=== PATIENT | male | born 1970 | race Caucasian/White ===

== ENCOUNTER 2017-07-08 08:28 | Inpatient (IN) | payer MEDICAID, OTHER ==
[~2017-07-08] VITALS: Ht 175.3 cm; Wt 225.8 kg
[~2017-07-08 08:28] MED LIST: CARV12 PO; LURA40 PO; PARO20TA24 PO
[2017-07-08] MEDS ORDERED: FURO40 PO (08:35)
[2017-07-08] MEDS ORDERED: BUPR300T54 PO (08:35)
[2017-07-08] MEDS ORDERED: LOSA50TA37 PO (08:35)
[2017-07-08 09:25] LABS: AMPHET/METH SCREEN,URINE NEGATIVE (NEGATIVE); BARBITURATE SCREEN, URINE NEGATIVE (NEGATIVE); BENZODIAZEPINES SCREEN,URINE POSITIVE (NEGATIVE); CANNABINOID SCREEN,URINE NEGATIVE (NEGATIVE); COCAINE SCREEN,URINE NEGATIVE (NEGATIVE); METHADONE SCREEN, URINE NEGATIVE (NEGATIVE); OPIATE SCREEN,URINE NEGATIVE (NEGATIVE)
[2017-07-08 09:28] LABS: PHENCYCLIDINE SCREEN,URINE NEGATIVE (NEGATIVE)
[2017-07-08 09:52] LABS: EOSINOPHILS # (AUTO) 0.08 K/uL (0.00-0.70)
[2017-07-08 09:57] LABS: BASOPHILS # (AUTO) 0.05 K/uL (0.00-0.20); BASOPHILS % (AUTO) 0.7 % (0.0-2.0); EOSINOPHILS % (AUTO) 1.12 % (1.0-6.0); HEMOGLOBIN 14.3 g/dL (13.5-17.5); LYMPHOCYTES # (AUTO) 1.6 K/uL (1.0-4.8); LYMPHOCYTES % (AUTO) 21.4 % (22.0-44.0); MEAN CORPUSCULAR HEMOGLOBIN 26.8 pg (26.0-34.0); MEAN CORPUSCULAR HGB CONC 32.5 G/dL (31.0-37.0); MEAN CORPUSCULAR VOLUME 83 fL (80-100); MONOCYTES # (AUTO) 0.8 K/uL (0.1-1.0); MONOCYTES % (AUTO) 10.6 % (2.0-9.0); NEUTROPHILS % (AUTO) 66.2 % (40.0-70.0); PLATELET COUNT (AUTO) 206 K/uL (150-450); RED BLOOD CELL COUNT(AUTO) 5.33 MIL/uL (4.50-5.90); RED CELL DISTRIBUTION WIDTH 15.6 % (11.5-14.5)
[2017-07-08 10:08] LABS: ANION GAP 12 mmol/L (8-16); CALCIUM, TOTAL 9.8 mg/dL (8.8-10.5); CARBON DIOXIDE 29 mmol/L (22-29); CHLORIDE 103 mmol/L (98-107); CREATININE 1.24 mg/dL (0.60-1.30); GLOMERULAR FILTR. RATE CALC > 60 mL/min (>60); GLUCOSE,RANDOM 93 mg/dL (70-110); POTASSIUM 3.6 mmol/L (3.5-5.1); SODIUM SERUM 144 mmol/L (136-145); UREA NITROGEN, BLOOD 30 mg/dL (7-18)
[2017-07-08 10:14] LABS: ALANINE AMINOTRANSFERASE 70 U/L (12-78); ALBUMIN 4.2 g/dL (3.4-5.0); ALKALINE PHOSPHATASE 49 U/L (46-116); ASPARTATE AMINOTRANSFERASE 53 U/L (15-37); BILIRUBIN,TOTAL 0.7 mg/dL (0.1-1.0); TOTAL PROTEIN, SERUM 7.7 g/dL (6.4-8.2)
[2017-07-08] MEDS ORDERED: LORazepam 2 MG/ML VIAL IM ONE ×3 (13:00→20:30)
[2017-07-08] MEDS ORDERED: DiphenhydrAMINE HCL 50 MG/ML VIAL IM ONE ×3 (13:00→20:30)
[2017-07-08] MEDS ORDERED: HALOPERIDOL LACTATE 5 MG/ML VIAL IM ONE ×3 (13:00→20:30)
[2017-07-08] MEDS ORDERED: ZOLPIDEM TARTRATE 10 MG TABLET PO PRN (13:45)
[2017-07-08] MEDS ORDERED: HALOPERIDOL 5 MG TABLET PO PRN (13:45)
[2017-07-08] MEDS: LORazepam 2 MG TABLET PO PRN (20:17)
[2017-07-09 00:29] LABS: APPEARANCE,URINE CLEAR (CLEAR); BILIRUBIN,URINE NEGATIVE (NEGATIVE); GLUCOSE, URINE (UA) NEGATIVE (NEGATIVE); KETONES,URINE TRACE mg/dL (NEGATIVE); LEUKOCYTE ESTERASE ,URINE NEGATIVE (NEGATIVE); NITRATE,URINE NEGATIVE (NEGATIVE); OCCULT BLOOD,URINE NEGATIVE (NEGATIVE); PH,URINE 6.5 (5.0-8.0); PROTEIN,URINE NEGATIVE (NEGATIVE); UROBILINOGEN,URINE 0.2 mg/dL (<=1.0)
[2017-07-09 08:28] LABS: FREE T4 (FREE THYROXINE) 1.06 ng/dL (0.76-1.46); THYROID STIMULATING HORMONE 1.41 uIU/mL (0.36-3.74)
[2017-07-09 19:47] VITALS: BP 133/79
[2017-07-09 20:39] VITALS: BP 133/79
[2017-07-10] MEDS ORDERED: ONDANSETRON HCL 4 MG TABLET PO PRN (07:30)
[2017-07-10] MEDS ORDERED: ALBUTEROL SULFATE HFA 90 MCG/PUFF 8 GM INHALER IH PRN (07:30)
[2017-07-10] MEDS ORDERED: CloNIDine HCL 0.1 MG TABLET PO PRN (07:30)
[2017-07-10] MEDS ORDERED: BACITRACIN 28.4 GM OINTMENT TP PRN (07:30)
[2017-07-10] MEDS ORDERED: MAG HYDROX/AL HYDROX/SIMETH ES 30 ML SUSPENSION UDCUP PO PRN (07:30)
[2017-07-10] MEDS ORDERED: IBUPROFEN 600 MG TABLET PO PRN (07:30)
[2017-07-10] MEDS ORDERED: MAGNESIUM HYDROXIDE SUSPENSION 30 ML UDCUP PO PRN (07:30)
[2017-07-10] MEDS ORDERED: PETROLATUM,WHITE 71 GM JELLY TP PRN (07:30)
[2017-07-10] MEDS ORDERED: ACETAMINOPHEN 325 MG TABLET PO PRN (07:30)
[2017-07-10] MEDS ORDERED: LOPERAMIDE HCL 2 MG CAPSULE PO PRN (07:30)
[2017-07-10] MEDS ORDERED: BENZOCAINE/MENTHOL LOZENGE MM PRN (07:30)
[2017-07-10 08:03] VITALS: BP 123/76
[2017-07-10] MEDS ORDERED: FUROSEMIDE 40 MG TABLET PO SCH (09:00)
[2017-07-10] MEDS ORDERED: ALBUTEROL SULFATE/IPRATROPIUM 100-20 MCG/SPRAY 4 GM INHALER IH SCH (09:00)
[2017-07-10] MEDS ORDERED: ZARO5 PO (09:22)
[2017-07-10] MEDS ORDERED: NAPR-58 PO (09:29)
[2017-07-10] MEDS ORDERED: CYCL10 PO (09:29)
[2017-07-10] MEDS ORDERED: ALBU8.5H8 IH (09:29)
[2017-07-10] MEDS ORDERED: METH4TAB3 PO (09:29)
[2017-07-10] MEDS ORDERED: DIAZ5 PO (09:29)
[2017-07-10] MEDS ORDERED: BUDE180H IH (09:29)
[2017-07-10] MEDS ORDERED: ASPI81 PO (09:29)
[2017-07-10] MEDS ORDERED: FURO80 PO (09:29)
[2017-07-10] MEDS ORDERED: [UNRECOGNIZED DRUG - OTHER] PO (09:36)
[2017-07-10] MEDS: LOSARTAN POTASSIUM 50 MG TABLET PO SCH (11:06)
[2017-07-10] MEDS: TiZANidine HCL 4 MG TABLET PO SCH ×2 (11:06→17:48)
[2017-07-10] MEDS: ASPIRIN 81 MG EC TABLET PO SCH (11:06)
[2017-07-10] MEDS: DOCUSATE SODIUM 100 MG CAPSULE PO SCH (11:07)
[2017-07-10] MEDS: OMEPRAZOLE 20 MG CAPSULE PO SCH (11:07)
[2017-07-10] MEDS: METOLAZONE 5 MG TABLET PO SCH (11:07)
[2017-07-10] MEDS: CARVEDILOL 12.5 MG TABLET PO SCH ×2 (11:07→17:47)
[2017-07-10] MEDS: NICOTINE POLACRILEX 2 MG LOZENGE PO PRN ×2 (11:23→13:43)
[2017-07-10] MEDS: LORazepam 2 MG TABLET PO PRN (13:45)
[2017-07-10] MEDS: FUROSEMIDE 80 MG TABLET PO SCH (17:47)
[2017-07-10] MEDS: LamoTRIgine 100 MG TABLET PO SCH (17:48)
[2017-07-10] MEDS: BUDESONIDE 180 MCG/INH INHALER [120] IH SCH (17:49)
[2017-07-10 19:15] VITALS: BP 105/68
[2017-07-11 08:04] VITALS: BP 158/99
[2017-07-11] MEDS: TiZANidine HCL 4 MG TABLET PO SCH (08:04)
[2017-07-11] MEDS: FUROSEMIDE 80 MG TABLET PO SCH (08:04)
[2017-07-11] MEDS: LamoTRIgine 100 MG TABLET PO SCH (08:04)
[2017-07-11] MEDS: OMEPRAZOLE 20 MG CAPSULE PO SCH (08:04)
[2017-07-11] MEDS: METOLAZONE 5 MG TABLET PO SCH (08:04)
[2017-07-11] MEDS: CARVEDILOL 12.5 MG TABLET PO SCH (08:04)
[2017-07-11] MEDS: BUDESONIDE 180 MCG/INH INHALER [120] IH SCH (08:04)
[2017-07-11] MEDS: LOSARTAN POTASSIUM 50 MG TABLET PO SCH (08:04)
[2017-07-11] MEDS: DOCUSATE SODIUM 100 MG CAPSULE PO SCH (08:04)
[2017-07-11] MEDS: ASPIRIN 81 MG EC TABLET PO SCH (08:05)
[2017-07-11] MEDS: NICOTINE POLACRILEX 2 MG LOZENGE PO PRN ×2 (08:11→10:11)
[2017-07-11] MEDS ORDERED: TIZA4TAB4 PO (10:58)
[2017-07-11] MEDS ORDERED: OMEP20 PO (10:58)
[2017-07-11] MEDS ORDERED: LAMO100 PO (11:00)
[2017-07-11] MEDS ORDERED: DSS100 PO (11:07)
== END 2017-07-11 12:05 | disposition home or self-care (01) | DRG 750 ==
LOC: EMS 08:35 → 3EC 07-09 15:47
PROVIDERS: ADMIT Psychiatry & Neurology Child & Adolescent Psychiatry; ATTEND Psychiatry & Neurology Child & Adolescent Psychiatry
DX: F25.9 Schizoaffective disorder, unspecified (principal); I11.0 Hypertensive heart disease with heart failure; I50.20 Unspecified systolic (congestive) heart failure; E66.01 Morbid (severe) obesity due to excess calories; F22 Delusional disorders; F43.10 Post-traumatic stress disorder, unspecified; G47.00 Insomnia, unspecified; G47.33 Obstructive sleep apnea (adult) (pediatric); J44.9 Chronic obstructive pulmonary disease, unspecified; K21.9 Gastro-esophageal reflux disease without esophagitis; M54.30 Sciatica, unspecified side; Z81.8 Family history of other mental and behavioral disorders; Z87.891 Personal history of nicotine dependence; Z68.45 Body mass index [BMI] 70 or greater, adult
CPT/HCPCS: 84439; 84443; 94660; 96372; 99285; G0480; J1200; J1630; J2060; J3535

== ENCOUNTER 2017-11-24 13:50 | Inpatient (IN) | payer MEDICAID, OTHER ==
[~2017-11-24] VITALS: Ht 167.6 cm; Wt 214.5 kg
[~2017-11-24 13:50] MED LIST changes: +ALBU8.5H8 IH; +ASPI81 PO; +BUDE180H IH; +DSS100 PO; +FURO80 PO; +LAMO100 PO; +LOSA50TA37 PO; -LURA40 PO; +OMEP20 PO; -PARO20TA24 PO; +TIZA4TAB4 PO; +ZARO5 PO
[2017-11-24] MEDS ORDERED: LORazepam 2 MG/ML VIAL IM ONE (15:30)
[2017-11-24] MEDS ORDERED: HALOPERIDOL LACTATE 5 MG/ML VIAL IM ONE (15:30)
[2017-11-24] MEDS ORDERED: DiphenhydrAMINE HCL 50 MG/ML VIAL IM ONE (15:30)
[2017-11-24 15:52] LABS: APPEARANCE,URINE CLEAR (CLEAR); BILIRUBIN,URINE NEGATIVE (NEGATIVE); GLUCOSE, URINE (UA) NEGATIVE (NEGATIVE); KETONES,URINE TRACE mg/dL (NEGATIVE); LEUKOCYTE ESTERASE ,URINE NEGATIVE (NEGATIVE); NITRATE,URINE NEGATIVE (NEGATIVE); OCCULT BLOOD,URINE NEGATIVE (NEGATIVE); PROTEIN,URINE NEGATIVE (NEGATIVE)
[2017-11-24 15:57] LABS: AMPHET/METH SCREEN,URINE NEGATIVE (NEGATIVE); BARBITURATE SCREEN, URINE NEGATIVE (NEGATIVE); BENZODIAZEPINES SCREEN,URINE NEGATIVE (NEGATIVE); CANNABINOID SCREEN,URINE NEGATIVE (NEGATIVE); COCAINE SCREEN,URINE NEGATIVE (NEGATIVE); METHADONE SCREEN, URINE NEGATIVE (NEGATIVE); OPIATE SCREEN,URINE NEGATIVE (NEGATIVE); PHENCYCLIDINE SCREEN,URINE NEGATIVE (NEGATIVE)
[2017-11-24] MEDS ORDERED: ACETAMINOPHEN 325 MG TABLET PO ONE (16:15)
[2017-11-24] MEDS ORDERED: CEPHALEXIN MONOHYDRATE 500 MG CAPSULE PO ONE (16:15)
[2017-11-24] MEDS ORDERED: FUROSEMIDE 20 MG TABLET PO ONE (16:15)
[2017-11-24 18:22] LABS: BASOPHILS % (AUTO) 1.1 % (0.0-2.0); EOSINOPHILS % (AUTO) 3.1 % (1.0-6.0); HEMATOCRIT 35.6 % (41-53); HEMOGLOBIN 11.6 g/dL (13.5-17.5); LYMPHOCYTES # (AUTO) 1.5 K/uL (1.0-4.8); LYMPHOCYTES % (AUTO) 22.2 % (22.0-44.0); MEAN CORPUSCULAR HEMOGLOBIN 26.4 pg (26.0-34.0); MEAN CORPUSCULAR HGB CONC 32.5 G/dL (31.0-37.0); MEAN CORPUSCULAR VOLUME 81 fL (80-100); MONOCYTES # (AUTO) 1.1 K/uL (0.1-1.0); MONOCYTES % (AUTO) 15.1 % (2.0-9.0); NEUTROPHILS # (AUTO) 4.1 K/uL (1.8-7.7); NEUTROPHILS % (AUTO) 58.5 % (40.0-70.0); PLATELET COUNT (AUTO) 220 K/uL (150-450); RED BLOOD CELL COUNT(AUTO) 4.39 MIL/uL (4.50-5.90); RED CELL DISTRIBUTION WIDTH 16.9 % (11.5-14.5)
[2017-11-24 18:46] LABS: ANION GAP 9 mmol/L (8-16); CALCIUM, TOTAL 8.6 mg/dL (8.8-10.5); CARBON DIOXIDE 29 mmol/L (22-29); CHLORIDE 100 mmol/L (98-107); CREATININE 1.14 mg/dL (0.60-1.30); GLOMERULAR FILTR. RATE CALC > 60 mL/min (>60); GLUCOSE,RANDOM 90 mg/dL (70-110); POTASSIUM 3.5 mmol/L (3.5-5.1); SODIUM SERUM 138 mmol/L (136-145); UREA NITROGEN, BLOOD 11 mg/dL (7-18)
[2017-11-24 18:53] LABS: ALANINE AMINOTRANSFERASE 72 U/L (12-78); ALBUMIN 3.6 g/dL (3.4-5.0); ALKALINE PHOSPHATASE 39 U/L (46-116); ASPARTATE AMINOTRANSFERASE 74 U/L (15-37); BILIRUBIN,TOTAL 0.6 mg/dL (0.1-1.0); C-REACTIVE PROTEIN QUANT 1.38 mg/dL (0.00-0.30); TOTAL PROTEIN, SERUM 6.7 g/dL (6.4-8.2)
[2017-11-24 19:06] LABS: B-TYPE NATRIURETIC PEPTIDE 48 pg/mL (0-100)
[2017-11-24] MEDS ORDERED: HALOPERIDOL 5 MG TABLET PO PRN (19:15)
[2017-11-24 19:45] LABS: ERYTHROCYTE SEDIMENTATION RATE 8 MM/HR (0-15)
[2017-11-24] MEDS: LamoTRIgine 100 MG TABLET PO SCH (20:25)
[2017-11-24 21:22] VITALS: BP 121/86
[2017-11-25] MEDS: LORazepam 2 MG TABLET PO PRN (02:11)
[2017-11-25] MEDS: BUDESONIDE 180 MCG/INH INHALER [120] IH SCH ×2 (10:07→16:29)
[2017-11-25] MEDS: CARVEDILOL 12.5 MG TABLET PO SCH ×2 (10:07→16:29)
[2017-11-25] MEDS: ASPIRIN 81 MG CHEWABLE TABLET PO SCH (10:07)
[2017-11-25] MEDS: LOSARTAN POTASSIUM 50 MG TABLET PO SCH (10:09)
[2017-11-25] MEDS: METOLAZONE 5 MG TABLET PO SCH (10:15)
[2017-11-25] MEDS: TiZANidine HCL 4 MG TABLET PO SCH ×2 (10:15→16:30)
[2017-11-25] MEDS: LamoTRIgine 100 MG TABLET PO SCH (10:15)
[2017-11-25] MEDS: FUROSEMIDE 80 MG TABLET PO SCH (10:15)
[2017-11-25] MEDS: OMEPRAZOLE 20 MG CAPSULE PO SCH (10:15)
[2017-11-25] MEDS: DOCUSATE SODIUM 100 MG CAPSULE PO SCH (10:22)
[2017-11-25 10:26] VITALS: BP 128/67
[2017-11-25] MEDS ORDERED: HALOPERIDOL LACTATE 5 MG/ML VIAL IM ONE (20:00)
[2017-11-25] MEDS ORDERED: LORazepam 2 MG/ML VIAL IM ONE (20:00)
[2017-11-25] MEDS ORDERED: DiphenhydrAMINE HCL 50 MG/ML VIAL IM ONE (20:00)
[2017-11-26] MEDS: BUDESONIDE 180 MCG/INH INHALER [120] IH SCH ×2 (07:40→17:36)
[2017-11-26] MEDS: METOLAZONE 5 MG TABLET PO SCH (07:41)
[2017-11-26] MEDS: LamoTRIgine 100 MG TABLET PO SCH (07:41)
[2017-11-26] MEDS: FUROSEMIDE 80 MG TABLET PO SCH (07:41)
[2017-11-26] MEDS: CARVEDILOL 12.5 MG TABLET PO SCH ×2 (07:41→17:33)
[2017-11-26] MEDS: TiZANidine HCL 4 MG TABLET PO SCH ×2 (07:41→17:33)
[2017-11-26] MEDS: OMEPRAZOLE 20 MG CAPSULE PO SCH (07:41)
[2017-11-26] MEDS: LOSARTAN POTASSIUM 50 MG TABLET PO SCH (07:41)
[2017-11-26] MEDS: DOCUSATE SODIUM 100 MG CAPSULE PO SCH (07:42)
[2017-11-26] MEDS: ASPIRIN 81 MG CHEWABLE TABLET PO SCH (07:42)
[2017-11-26 08:00] VITALS: BP 139/93
[2017-11-26] MEDS: ALBUTEROL SULFATE 2.5 MG/0.5 ML NEB SOLUTION NEB PRN (08:38)
[2017-11-26] MEDS: IPRATROPIUM BROMIDE 0.5 MG/2.5 ML NEB SOLUTION NEB PRN (08:39)
[2017-11-26] MEDS ORDERED: LamoTRIgine 100 MG TABLET PO SCH (09:00)
[2017-11-26] MEDS ORDERED: PETROLATUM,WHITE 71 GM JELLY TP PRN (20:45)
[2017-11-26] MEDS ORDERED: CloNIDine HCL 0.1 MG TABLET PO PRN (20:45)
[2017-11-26] MEDS ORDERED: MAG HYDROX/AL HYDROX/SIMETH ES 30 ML SUSPENSION UDCUP PO PRN (20:45)
[2017-11-26] MEDS ORDERED: LOPERAMIDE HCL 2 MG CAPSULE PO PRN (20:45)
[2017-11-26] MEDS ORDERED: ONDANSETRON HCL 4 MG TABLET PO PRN (20:45)
[2017-11-26] MEDS ORDERED: MAGNESIUM HYDROXIDE SUSPENSION 30 ML UDCUP PO PRN (20:45)
[2017-11-26] MEDS ORDERED: IBUPROFEN 600 MG TABLET PO PRN (20:45)
[2017-11-26] MEDS ORDERED: BACITRACIN 28.4 GM OINTMENT TP PRN (20:45)
[2017-11-26] MEDS ORDERED: BENZOCAINE/MENTHOL LOZENGE MM PRN (20:45)
[2017-11-26 21:23] VITALS: BP 136/78
[2017-11-27] MEDS: ZOLPIDEM TARTRATE 10 MG TABLET PO PRN (02:34)
[2017-11-27] MEDS: LORazepam 2 MG TABLET PO PRN ×2 (02:34→17:30)
[2017-11-27 06:34] LABS: % IRON SATURATION 6.6 % (30-44)
[2017-11-27 06:43] LABS: CALCIUM, TOTAL 8.9 mg/dL (8.8-10.5); CHOL/HDL RATIO 2.9 (4.2-7.3); CREATININE 1.79 mg/dL (0.60-1.30); PHOSPHORUS 4.1 mg/dL (2.5-4.9); POTASSIUM 3.4 mmol/L (3.5-5.1); THYROID STIMULATING HORMONE 2.33 uIU/mL (0.36-3.74)
[2017-11-27 06:51] LABS: BASOPHILS % (AUTO) 0.8 % (0.0-2.0); HEMATOCRIT 38.9 % (41-53); HEMOGLOBIN 12.9 g/dL (13.5-17.5); LYMPHOCYTES # (AUTO) 2.5 K/uL (1.0-4.8); LYMPHOCYTES % (AUTO) 24.6 % (22.0-44.0); MEAN CORPUSCULAR HEMOGLOBIN 26.9 pg (26.0-34.0); MEAN CORPUSCULAR HGB CONC 33.1 G/dL (31.0-37.0); MEAN CORPUSCULAR VOLUME 81 fL (80-100); MONOCYTES # (AUTO) 1.2 K/uL (0.1-1.0); MONOCYTES % (AUTO) 11.6 % (2.0-9.0); NEUTROPHILS # (AUTO) 6.1 K/uL (1.8-7.7); PLATELET COUNT (AUTO) 238 K/uL (150-450); RED BLOOD CELL COUNT(AUTO) 4.79 MIL/uL (4.50-5.90); RED CELL DISTRIBUTION WIDTH 16.8 % (11.5-14.5)
[2017-11-27] MEDS: BUDESONIDE 180 MCG/INH INHALER [120] IH SCH ×2 (08:17→17:30)
[2017-11-27] MEDS: ASPIRIN 81 MG CHEWABLE TABLET PO SCH (08:17)
[2017-11-27] MEDS: DOCUSATE SODIUM 100 MG CAPSULE PO SCH (08:17)
[2017-11-27] MEDS: OMEPRAZOLE 20 MG CAPSULE PO SCH (08:17)
[2017-11-27] MEDS: FUROSEMIDE 80 MG TABLET PO SCH (08:18)
[2017-11-27] MEDS: TiZANidine HCL 4 MG TABLET PO SCH ×2 (08:18→17:30)
[2017-11-27] MEDS: LamoTRIgine 100 MG TABLET PO SCH (08:18)
[2017-11-27] MEDS: CARVEDILOL 12.5 MG TABLET PO SCH ×2 (08:18→17:30)
[2017-11-27] MEDS: LOSARTAN POTASSIUM 50 MG TABLET PO SCH (08:18)
[2017-11-27] MEDS: METOLAZONE 5 MG TABLET PO SCH (08:19)
[2017-11-27 09:33] VITALS: BP 132/85
[2017-11-27] MEDS: ALBUTEROL SULFATE HFA 90 MCG/PUFF 8 GM INHALER IH PRN (09:49)
[2017-11-27] MEDS: IPRATROPIUM BROMIDE 0.5 MG/2.5 ML NEB SOLUTION NEB PRN ×2 (10:16→19:54)
[2017-11-27] MEDS: ALBUTEROL SULFATE 2.5 MG/0.5 ML NEB SOLUTION NEB PRN ×2 (10:16→19:54)
[2017-11-27 16:00] VITALS: BP 129/62
[2017-11-28] MEDS: ACETAMINOPHEN 325 MG TABLET PO PRN ×2 (00:13→06:00)
[2017-11-28 00:15] VITALS: BP 120/80
[2017-11-28] MEDS: LORazepam 2 MG TABLET PO PRN ×4 (00:24→22:46)
[2017-11-28] MEDS: ASPIRIN 81 MG CHEWABLE TABLET PO SCH (08:07)
[2017-11-28] MEDS: OMEPRAZOLE 20 MG CAPSULE PO SCH (08:07)
[2017-11-28] MEDS: ALBUTEROL SULFATE HFA 90 MCG/PUFF 8 GM INHALER IH PRN (08:07)
[2017-11-28] MEDS: DOCUSATE SODIUM 100 MG CAPSULE PO SCH (08:07)
[2017-11-28] MEDS: CHOLECALCIFEROL (VIT D3) 1,000 UNITS TABLET PO SCH (08:07)
[2017-11-28] MEDS: METOLAZONE 5 MG TABLET PO SCH (08:08)
[2017-11-28] MEDS: LOSARTAN POTASSIUM 50 MG TABLET PO SCH (08:08)
[2017-11-28] MEDS: TiZANidine HCL 4 MG TABLET PO SCH ×2 (08:08→16:33)
[2017-11-28] MEDS: FUROSEMIDE 80 MG TABLET PO SCH (08:08)
[2017-11-28] MEDS: BUDESONIDE 180 MCG/INH INHALER [120] IH SCH ×2 (08:08→16:33)
[2017-11-28] MEDS: LamoTRIgine 100 MG TABLET PO SCH (08:08)
[2017-11-28] MEDS: CARVEDILOL 12.5 MG TABLET PO SCH ×2 (08:08→16:33)
[2017-11-28 08:16] VITALS: BP 123/71
[2017-11-28 08:18] VITALS: BP 126/73
[2017-11-28] MEDS: ALBUTEROL SULFATE 2.5 MG/0.5 ML NEB SOLUTION NEB PRN ×2 (16:14→22:59)
[2017-11-28] MEDS: IPRATROPIUM BROMIDE 0.5 MG/2.5 ML NEB SOLUTION NEB PRN ×2 (16:14→22:59)
[2017-11-28 20:58] VITALS: BP 132/80
[2017-11-28] MEDS: ZOLPIDEM TARTRATE 10 MG TABLET PO PRN (22:45)
[2017-11-29] MEDS: ASPIRIN 81 MG CHEWABLE TABLET PO SCH (08:23)
[2017-11-29] MEDS: OMEPRAZOLE 20 MG CAPSULE PO SCH (08:23)
[2017-11-29] MEDS: CHOLECALCIFEROL (VIT D3) 1,000 UNITS TABLET PO SCH (08:23)
[2017-11-29] MEDS: DOCUSATE SODIUM 100 MG CAPSULE PO SCH (08:23)
[2017-11-29 08:24] VITALS: BP 154/98
[2017-11-29] MEDS: LOSARTAN POTASSIUM 50 MG TABLET PO SCH (08:24)
[2017-11-29] MEDS: TiZANidine HCL 4 MG TABLET PO SCH (08:24)
[2017-11-29] MEDS: CARVEDILOL 12.5 MG TABLET PO SCH (08:24)
[2017-11-29] MEDS: METOLAZONE 5 MG TABLET PO SCH (08:25)
[2017-11-29] MEDS: LamoTRIgine 100 MG TABLET PO SCH (08:25)
[2017-11-29] MEDS: BUDESONIDE 180 MCG/INH INHALER [120] IH SCH (08:26)
[2017-11-29] MEDS: ACETAMINOPHEN 325 MG TABLET PO PRN (08:27)
[2017-11-29 08:38] VITALS: BP 154/98
[2017-11-29 08:53] LABS: GLUCOMETER DEV NAME(LOC) 3EC; GLUCOSE,POINT OF CARE 115 MG/DL (70-110)
[2017-11-29 09:29] VITALS: BP 108/89
[2017-11-29] MEDS: FUROSEMIDE 80 MG TABLET PO SCH (09:40)
[2017-11-29] MEDS ORDERED: VITAD1000 PO (13:37)
== END 2017-11-29 15:15 | disposition home or self-care (01) | DRG 750 ==
LOC: EMS 13:52 → 3EC 20:29
PROVIDERS: ADMIT Psychiatry & Neurology Psychiatry; ATTEND Psychiatry & Neurology Psychiatry
PROC: 5A09357 Assistance with Respiratory Ventilation, Less than 24 Consecutive Hours, Continuous Positive Airway Pressure (ICD-10-PCS; principal; 2017-11-24)
PROC: 5A09357 Assistance with Respiratory Ventilation, Less than 24 Consecutive Hours, Continuous Positive Airway Pressure (ICD-10-PCS; 2017-11-27)
PROC: 5A09357 Assistance with Respiratory Ventilation, Less than 24 Consecutive Hours, Continuous Positive Airway Pressure (ICD-10-PCS; 2017-11-28)
DX: F25.0 Schizoaffective disorder, bipolar type (principal); L03.115 Cellulitis of right lower limb; I11.0 Hypertensive heart disease with heart failure; Z68.45 Body mass index [BMI] 70 or greater, adult; L03.116 Cellulitis of left lower limb; I50.20 Unspecified systolic (congestive) heart failure; R45.851 Suicidal ideations; E66.01 Morbid (severe) obesity due to excess calories; D64.9 Anemia, unspecified; M54.30 Sciatica, unspecified side; R79.82 Elevated C-reactive protein (CRP); E83.51 Hypocalcemia; G47.00 Insomnia, unspecified; F32.9 Major depressive disorder, single episode, unspecified; F43.10 Post-traumatic stress disorder, unspecified; G47.33 Obstructive sleep apnea (adult) (pediatric); J44.9 Chronic obstructive pulmonary disease, unspecified; K21.9 Gastro-esophageal reflux disease without esophagitis; F17.210 Nicotine dependence, cigarettes, uncomplicated; Z59.0 Homelessness; Z91.14 Patient's other noncompliance with medication regimen; Z79.899 Other long term (current) drug therapy; Z81.8 Family history of other mental and behavioral disorders
CPT/HCPCS: 82306; 83540; 83550; 83735; 84100; 84443; 85379; 85651; 86140; 87040; 93970; 94640; 94660; 99285; J1200; J1630; J2060; J3535

== ENCOUNTER 2017-12-18 15:22 | Inpatient (IN) | payer MEDICAID ==
[~2017-12-18] VITALS: Ht 177.8 cm; Wt 206.9 kg
[~2017-12-18 15:22] MED LIST changes: +VITAD1000 PO
[2017-12-18] MEDS ORDERED: HALOPERIDOL 5 MG TABLET PO PRN (18:00)
[2017-12-18] MEDS ORDERED: PNEUMOCOCCAL VACCINE POLYVALENT 0.5 ML VIAL [PPSV23] IM ONE (19:00)
[2017-12-18 19:58] LABS: GLUCOMETER DEV NAME(LOC) BV2N3; GLUCOSE,POINT OF CARE 95 MG/DL (70-110)
[2017-12-18 22:29] VITALS: BP 143/74
[2017-12-18] MEDS ORDERED: ALBUTEROL SULFATE HFA 90 MCG/PUFF 8 GM INHALER IH PRN (22:45)
[2017-12-19 01:51] VITALS: BP 109/61
[2017-12-19 06:51] LABS: BASOPHILS % (AUTO) 1.1 % (0.0-2.0); EOSINOPHILS % (AUTO) 5.2 % (1.0-6.0); HEMOGLOBIN 12.7 g/dL (13.5-17.5); LYMPHOCYTES # (AUTO) 2.4 K/uL (1.0-4.8); MEAN CORPUSCULAR HEMOGLOBIN 26.8 pg (26.0-34.0); MEAN CORPUSCULAR HGB CONC 33.3 G/dL (31.0-37.0); MEAN CORPUSCULAR VOLUME 81 fL (80-100); MONOCYTES # (AUTO) 0.8 K/uL (0.1-1.0); NEUTROPHILS # (AUTO) 3.3 K/uL (1.8-7.7); NEUTROPHILS % (AUTO) 47.7 % (40.0-70.0); PLATELET COUNT (AUTO) 273 K/uL (150-450); RED BLOOD CELL COUNT(AUTO) 4.73 MIL/uL (4.50-5.90); RED CELL DISTRIBUTION WIDTH 17.4 % (11.5-14.5)
[2017-12-19 07:09] LABS: HEMOGLOBIN A1C 6.4 % (4.5-6.2)
[2017-12-19 07:31] LABS: ALANINE AMINOTRANSFERASE 37 U/L (12-78); ALBUMIN 3.5 g/dL (3.4-5.0); ALKALINE PHOSPHATASE 59 U/L (46-116); ANION GAP 4 mmol/L (8-16); ASPARTATE AMINOTRANSFERASE 28 U/L (15-37); BILIRUBIN,TOTAL 0.4 mg/dL (0.1-1.0); CALCIUM, TOTAL 9.3 mg/dL (8.8-10.5); CARBON DIOXIDE 34 mmol/L (22-29); CHLORIDE 96 mmol/L (98-107); CHOL/HDL RATIO 3.5 (4.2-7.3); CHOLESTEROL 166 mg/dL (131-200); CREATININE 1.12 mg/dL (0.60-1.30); FREE T4 (FREE THYROXINE) 0.94 ng/dL (0.76-1.46); GLOMERULAR FILTR. RATE CALC > 60 mL/min (>60); GLUCOSE,RANDOM 107 mg/dL (70-110); HDL CHOLESTEROL 48 mg/dL (40-60); LDL CHOL (CALC.) 99 mg/dL (0-130); POTASSIUM 3.5 mmol/L (3.5-5.1); SODIUM SERUM 134 mmol/L (136-145); THYROID STIMULATING HORMONE 2.01 uIU/mL (0.36-3.74); TOTAL PROTEIN, SERUM 7.8 g/dL (6.4-8.2); TRIGLYCERIDES 93 mg/dL (15-150); UREA NITROGEN, BLOOD 11 mg/dL (7-18)
[2017-12-19] MEDS ORDERED: LamoTRIgine 100 MG TABLET PO SCH (09:00)
[2017-12-19 09:09] VITALS: BP 154/106
[2017-12-19] MEDS: OMEPRAZOLE 20 MG CAPSULE PO SCH (09:23)
[2017-12-19] MEDS: LOSARTAN POTASSIUM 50 MG TABLET PO SCH (09:23)
[2017-12-19] MEDS: CHOLECALCIFEROL (VIT D3) 1,000 UNITS TABLET PO SCH (09:23)
[2017-12-19] MEDS: METOLAZONE 5 MG TABLET PO SCH (09:23)
[2017-12-19] MEDS: CARVEDILOL 12.5 MG TABLET PO SCH ×2 (09:23→16:51)
[2017-12-19] MEDS: TiZANidine HCL 4 MG TABLET PO SCH ×2 (09:23→16:51)
[2017-12-19] MEDS: DOCUSATE SODIUM 100 MG CAPSULE PO SCH (09:23)
[2017-12-19] MEDS: FUROSEMIDE 80 MG TABLET PO SCH ×2 (09:23→16:51)
[2017-12-19] MEDS: ASPIRIN 81 MG CHEWABLE TABLET PO SCH (09:24)
[2017-12-19] MEDS: BUDESONIDE 180 MCG/INH INHALER [120] IH SCH ×2 (09:26→16:50)
[2017-12-19] MEDS ORDERED: DOCUSATE SODIUM 100 MG CAPSULE PO PRN (14:00)
[2017-12-19] MEDS ORDERED: MAG HYDROX/AL HYDROX/SIMETH ES 30 ML SUSPENSION UDCUP PO PRN (14:00)
[2017-12-19] MEDS ORDERED: NICOTINE 14 MG/24 HOUR PATCH TD PRN (14:00)
[2017-12-19] MEDS ORDERED: ONDANSETRON HCL 4 MG TABLET PO PRN (14:00)
[2017-12-19] MEDS ORDERED: PETROLATUM,WHITE 71 GM JELLY TP PRN (14:00)
[2017-12-19] MEDS ORDERED: MAGNESIUM HYDROXIDE SUSPENSION 30 ML UDCUP PO PRN (14:00)
[2017-12-19] MEDS: LORazepam 2 MG TABLET PO PRN (20:39)
[2017-12-19 21:13] VITALS: BP 145/98
[2017-12-19] MEDS: ZOLPIDEM TARTRATE 10 MG TABLET PO PRN (22:36)
[2017-12-20] MEDS: DOCUSATE SODIUM 100 MG CAPSULE PO SCH (08:28)
[2017-12-20] MEDS: LOSARTAN POTASSIUM 50 MG TABLET PO SCH (08:28)
[2017-12-20] MEDS: LamoTRIgine 100 MG TABLET PO SCH (08:28)
[2017-12-20] MEDS: OMEPRAZOLE 20 MG CAPSULE PO SCH (08:28)
[2017-12-20] MEDS: CHOLECALCIFEROL (VIT D3) 1,000 UNITS TABLET PO SCH (08:28)
[2017-12-20] MEDS: METOLAZONE 5 MG TABLET PO SCH (08:28)
[2017-12-20] MEDS: ASPIRIN 81 MG CHEWABLE TABLET PO SCH (08:28)
[2017-12-20] MEDS: FUROSEMIDE 80 MG TABLET PO SCH ×2 (08:29→16:18)
[2017-12-20] MEDS: TiZANidine HCL 4 MG TABLET PO SCH ×2 (08:29→16:18)
[2017-12-20] MEDS: CARVEDILOL 12.5 MG TABLET PO SCH ×2 (08:29→16:18)
[2017-12-20] MEDS: BUDESONIDE 180 MCG/INH INHALER [120] IH SCH ×2 (08:30→16:17)
[2017-12-20 10:04] VITALS: BP 121/77
[2017-12-20] MEDS: ACETAMINOPHEN 325 MG TABLET PO PRN ×2 (10:04→22:57)
[2017-12-20 11:04] VITALS: BP 126/76
[2017-12-20] MEDS: MUPIROCIN CALCIUM 2% 22 GM OINTMENT NASAL SCH (16:17)
[2017-12-20 19:46] VITALS: BP 116/83
[2017-12-20] MEDS: ZOLPIDEM TARTRATE 10 MG TABLET PO PRN (21:41)
[2017-12-20] MEDS: LORazepam 2 MG TABLET PO PRN (22:55)
[2017-12-21] MEDS: OMEPRAZOLE 20 MG CAPSULE PO SCH (08:51)
[2017-12-21] MEDS: CHOLECALCIFEROL (VIT D3) 1,000 UNITS TABLET PO SCH (08:51)
[2017-12-21] MEDS: LOSARTAN POTASSIUM 50 MG TABLET PO SCH (08:52)
[2017-12-21] MEDS: DOCUSATE SODIUM 100 MG CAPSULE PO SCH (08:52)
[2017-12-21] MEDS: ASPIRIN 81 MG CHEWABLE TABLET PO SCH (08:52)
[2017-12-21] MEDS: METOLAZONE 5 MG TABLET PO SCH (08:52)
[2017-12-21] MEDS: FUROSEMIDE 80 MG TABLET PO SCH ×2 (08:52→16:59)
[2017-12-21] MEDS: LamoTRIgine 100 MG TABLET PO SCH (08:52)
[2017-12-21] MEDS: TiZANidine HCL 4 MG TABLET PO SCH ×2 (08:52→16:59)
[2017-12-21] MEDS: CARVEDILOL 12.5 MG TABLET PO SCH ×3 (08:52→17:30)
[2017-12-21] MEDS: MUPIROCIN CALCIUM 2% 22 GM OINTMENT NASAL SCH ×2 (08:53→16:59)
[2017-12-21] MEDS: BUDESONIDE 180 MCG/INH INHALER [120] IH SCH ×2 (08:53→16:58)
[2017-12-21] MEDS: LORazepam 2 MG TABLET PO PRN ×2 (09:43→20:13)
[2017-12-21] MEDS: ACETAMINOPHEN 325 MG TABLET PO PRN ×2 (09:43→18:45)
[2017-12-21 10:35] VITALS: BP 135/70
[2017-12-21] MEDS: CHOLECALCIFEROL (VIT D3) 400 UNITS TABLET PO SCH (17:00)
[2017-12-21 17:30] VITALS: BP 128/78
[2017-12-21 18:46] VITALS: BP 125/65
[2017-12-21] MEDS: ZOLPIDEM TARTRATE 10 MG TABLET PO PRN (22:32)
[2017-12-21] MEDS: IBUPROFEN 400 MG TABLET PO PRN (22:55)
[2017-12-21 22:57] VITALS: BP 127/69
[2017-12-22 03:47] VITALS: BP 107/68
[2017-12-22 08:54] VITALS: BP 132/70
[2017-12-22] MEDS: TiZANidine HCL 4 MG TABLET PO SCH (09:37)
[2017-12-22] MEDS: CARVEDILOL 12.5 MG TABLET PO SCH (09:37)
[2017-12-22] MEDS: LamoTRIgine 100 MG TABLET PO SCH (09:38)
[2017-12-22] MEDS: MUPIROCIN CALCIUM 2% 22 GM OINTMENT NASAL SCH (09:38)
[2017-12-22] MEDS: METOLAZONE 5 MG TABLET PO SCH (09:38)
[2017-12-22] MEDS: LOSARTAN POTASSIUM 50 MG TABLET PO SCH (09:38)
[2017-12-22] MEDS: CHOLECALCIFEROL (VIT D3) 1,000 UNITS TABLET PO SCH (09:38)
[2017-12-22] MEDS: FUROSEMIDE 80 MG TABLET PO SCH (09:38)
[2017-12-22] MEDS: OMEPRAZOLE 20 MG CAPSULE PO SCH (09:38)
[2017-12-22] MEDS: ASPIRIN 81 MG CHEWABLE TABLET PO SCH (09:38)
[2017-12-22] MEDS: DOCUSATE SODIUM 100 MG CAPSULE PO SCH (09:38)
[2017-12-22] MEDS: BUDESONIDE 180 MCG/INH INHALER [120] IH SCH (09:39)
[2017-12-22] MEDS: CHOLECALCIFEROL (VIT D3) 400 UNITS TABLET PO SCH (09:41)
[2017-12-22] MEDS ORDERED: MUPI1OIN4 NS (10:30)
[2017-12-22] MEDS: IBUPROFEN 400 MG TABLET PO PRN (11:17)
[2017-12-22 11:19] VITALS: BP 136/76
[2017-12-22 12:19] VITALS: BP 132/75
== END 2017-12-22 15:00 | disposition home or self-care (01) | DRG 750 ==
LOC: 3EI 18:01
PROVIDERS: ADMIT Psychiatry & Neurology Psychiatry; ATTEND Psychiatry & Neurology Psychiatry
PROC: 5A09357 Assistance with Respiratory Ventilation, Less than 24 Consecutive Hours, Continuous Positive Airway Pressure (ICD-10-PCS; principal; 2017-12-18)
DX: F25.0 Schizoaffective disorder, bipolar type (principal); I11.0 Hypertensive heart disease with heart failure; I50.22 Chronic systolic (congestive) heart failure; R45.851 Suicidal ideations; E83.51 Hypocalcemia; E55.9 Vitamin D deficiency, unspecified; E66.01 Morbid (severe) obesity due to excess calories; D64.9 Anemia, unspecified; F17.200 Nicotine dependence, unspecified, uncomplicated; F29 Unspecified psychosis not due to a substance or known physiological condition; F41.9 Anxiety disorder, unspecified; F19.10 Other psychoactive substance abuse, uncomplicated; G47.00 Insomnia, unspecified; G47.33 Obstructive sleep apnea (adult) (pediatric); J44.9 Chronic obstructive pulmonary disease, unspecified; K21.9 Gastro-esophageal reflux disease without esophagitis; M54.30 Sciatica, unspecified side; R09.02 Hypoxemia; Z28.21 Immunization not carried out because of patient refusal; Z91.5 Personal history of self-harm; Z81.8 Family history of other mental and behavioral disorders; Z71.6 Tobacco abuse counseling; Z71.51 Drug abuse counseling and surveillance of drug abuser; Z68.44 Body mass index [BMI] 60.0-69.9, adult
CPT/HCPCS: 82306; 83036; 84439; 84443; 87081; 94660; J3535

== ENCOUNTER 2017-12-31 00:52 | Emergency (ER) | payer MEDICAID, OTHER ==
[~2017-12-31] VITALS: Ht 177.8 cm; Wt 206.0 kg
[~2017-12-31 00:52] MED LIST changes: -ALBU8.5H8 IH; +MUPI1OIN4 NS
[2017-12-31 03:41] LABS: BASOPHILS % (AUTO) 1.2 % (0.0-2.0); HEMATOCRIT 36.1 % (41-53); HEMOGLOBIN 11.9 g/dL (13.5-17.5); LYMPHOCYTES # (AUTO) 2.1 K/uL (1.0-4.8); LYMPHOCYTES % (AUTO) 30.8 % (22.0-44.0); MEAN CORPUSCULAR HEMOGLOBIN 26.4 pg (26.0-34.0); MEAN CORPUSCULAR HGB CONC 33.1 G/dL (31.0-37.0); MEAN CORPUSCULAR VOLUME 80 fL (80-100); MONOCYTES # (AUTO) 0.9 K/uL (0.1-1.0); MONOCYTES % (AUTO) 12.2 % (2.0-9.0); NEUTROPHILS # (AUTO) 3.5 K/uL (1.8-7.7); NEUTROPHILS % (AUTO) 50.8 % (40.0-70.0); PLATELET COUNT (AUTO) 187 K/uL (150-450); RED BLOOD CELL COUNT(AUTO) 4.53 MIL/uL (4.50-5.90)
[2017-12-31 03:47] LABS: AMPHET/METH SCREEN,URINE NEGATIVE (NEGATIVE); BARBITURATE SCREEN, URINE NEGATIVE (NEGATIVE); BENZODIAZEPINES SCREEN,URINE NEGATIVE (NEGATIVE); CANNABINOID SCREEN,URINE NEGATIVE (NEGATIVE); COCAINE SCREEN,URINE NEGATIVE (NEGATIVE); METHADONE SCREEN, URINE NEGATIVE (NEGATIVE); OPIATE SCREEN,URINE POSITIVE (NEGATIVE); PHENCYCLIDINE SCREEN,URINE NEGATIVE (NEGATIVE)
[2017-12-31 03:51] LABS: ALANINE AMINOTRANSFERASE 33 U/L (12-78); ALBUMIN 3.7 g/dL (3.4-5.0); ALKALINE PHOSPHATASE 46 U/L (46-116); ANION GAP 5 mmol/L (8-16); ASPARTATE AMINOTRANSFERASE 28 U/L (15-37); BILIRUBIN,TOTAL 0.5 mg/dL (0.1-1.0); CALCIUM, TOTAL 9.1 mg/dL (8.8-10.5); CARBON DIOXIDE 36 mmol/L (22-29); CHLORIDE 96 mmol/L (98-107); CREATININE 1.58 mg/dL (0.60-1.30); GLOMERULAR FILTR. RATE CALC 47 mL/min (>60); GLUCOSE,RANDOM 103 mg/dL (70-110); SODIUM SERUM 137 mmol/L (136-145); TOTAL PROTEIN, SERUM 7.5 g/dL (6.4-8.2); UREA NITROGEN, BLOOD 18 mg/dL (7-18)
[2017-12-31 03:53] LABS: POTASSIUM 2.6 mmol/L (3.5-5.1)
[2017-12-31] MEDS ORDERED: SODIUM CHLORIDE 0.9% 1,000 ML IV ONE (04:00)
[2017-12-31] MEDS ORDERED: POTASSIUM CHLORIDE 20 MEQ ER TABLET PO ONE (04:00)
[2017-12-31] MEDS ORDERED: OxyCODONE HCL/ACETAMINOPHEN 5-325 MG TABLET PO ONE (05:15)
[2017-12-31 06:36] VITALS: BP 140/75
== END 2017-12-31 06:55 | disposition home or self-care (01) ==
LOC: EMS 00:53
DX: F32.9 Major depressive disorder, single episode, unspecified (principal); E86.0 Dehydration; F31.9 Bipolar disorder, unspecified; F20.9 Schizophrenia, unspecified; J45.909 Unspecified asthma, uncomplicated; I11.0 Hypertensive heart disease with heart failure; I50.9 Heart failure, unspecified; J44.9 Chronic obstructive pulmonary disease, unspecified; F17.210 Nicotine dependence, cigarettes, uncomplicated; F19.90 Other psychoactive substance use, unspecified, uncomplicated; F11.90 Opioid use, unspecified, uncomplicated
CPT/HCPCS: 36415; 80053; 80307; 85025; 99284; G0480; J7030

== ENCOUNTER 2018-01-22 12:01 | Inpatient (IN) | payer MEDICAID, OTHER ==
[~2018-01-22] VITALS: Ht 177.8 cm; Wt 195.5 kg
[2018-01-22] MEDS ORDERED: METF500T6 PO (14:36)
[2018-01-22 14:49] LABS: GLUCOSE,POINT OF CARE 97 MG/DL (70-110)
[2018-01-22] MEDS ORDERED: HALOPERIDOL 5 MG TABLET PO ONE (15:00)
[2018-01-22] MEDS ORDERED: LORazepam 2 MG TABLET PO ONE (15:00)
[2018-01-22 15:28] LABS: BASOPHILS % (AUTO) 1.4 % (0.0-2.0); EOSINOPHILS % (AUTO) 2.9 % (1.0-6.0); HEMATOCRIT 38.5 % (41-53); HEMOGLOBIN 12.8 g/dL (13.5-17.5); LYMPHOCYTES # (AUTO) 2.6 K/uL (1.0-4.8); LYMPHOCYTES % (AUTO) 28.6 % (22.0-44.0); MEAN CORPUSCULAR HEMOGLOBIN 26.7 pg (26.0-34.0); MEAN CORPUSCULAR HGB CONC 33.2 G/dL (31.0-37.0); MEAN CORPUSCULAR VOLUME 81 fL (80-100); MONOCYTES % (AUTO) 11.2 % (2.0-9.0); NEUTROPHILS # (AUTO) 5.1 K/uL (1.8-7.7); NEUTROPHILS % (AUTO) 55.9 % (40.0-70.0); PLATELET COUNT (AUTO) 230 K/uL (150-450); RED BLOOD CELL COUNT(AUTO) 4.77 MIL/uL (4.50-5.90); RED CELL DISTRIBUTION WIDTH 17.4 % (11.5-14.5)
[2018-01-22] MEDS ORDERED: HALOPERIDOL LACTATE 5 MG/ML VIAL IM ONE (15:30)
[2018-01-22] MEDS ORDERED: LORazepam 2 MG/ML VIAL IM ONE (15:30)
[2018-01-22] MEDS ORDERED: DiphenhydrAMINE HCL 50 MG/ML VIAL IM ONE (15:30)
[2018-01-22 15:36] LABS: ANION GAP 7 mmol/L (8-16); CALCIUM, TOTAL 9.4 mg/dL (8.8-10.5); CARBON DIOXIDE 33 mmol/L (22-29); CHLORIDE 100 mmol/L (98-107); CREATININE 1.39 mg/dL (0.60-1.30); GLOMERULAR FILTR. RATE CALC 55 mL/min (>60); GLUCOSE,RANDOM 97 mg/dL (70-110); POTASSIUM 3.5 mmol/L (3.5-5.1); SODIUM SERUM 140 mmol/L (136-145); UREA NITROGEN, BLOOD 22 mg/dL (7-18)
[2018-01-22 15:42] LABS: ALANINE AMINOTRANSFERASE 31 U/L (12-78); ALKALINE PHOSPHATASE 49 U/L (46-116); ASPARTATE AMINOTRANSFERASE 29 U/L (15-37); BILIRUBIN,TOTAL 0.7 mg/dL (0.1-1.0); TOTAL PROTEIN, SERUM 7.6 g/dL (6.4-8.2)
[2018-01-22 15:43] LABS: AMPHET/METH SCREEN,URINE NEGATIVE (NEGATIVE); BARBITURATE SCREEN, URINE NEGATIVE (NEGATIVE); BENZODIAZEPINES SCREEN,URINE NEGATIVE (NEGATIVE); CANNABINOID SCREEN,URINE NEGATIVE (NEGATIVE); COCAINE SCREEN,URINE NEGATIVE (NEGATIVE); METHADONE SCREEN, URINE NEGATIVE (NEGATIVE); OPIATE SCREEN,URINE NEGATIVE (NEGATIVE)
[2018-01-22 15:44] LABS: PHENCYCLIDINE SCREEN,URINE NEGATIVE (NEGATIVE)
[2018-01-22] MEDS ORDERED: HALOPERIDOL 5 MG TABLET PO PRN (17:00)
[2018-01-23] MEDS: LORazepam 2 MG TABLET PO PRN ×2 (07:51→20:26)
[2018-01-23] MEDS ORDERED: LORazepam 2 MG/ML VIAL IM ONE (09:15)
[2018-01-23] MEDS ORDERED: DiphenhydrAMINE HCL 50 MG/ML VIAL IM ONE (09:15)
[2018-01-23] MEDS ORDERED: HALOPERIDOL LACTATE 5 MG/ML VIAL IM ONE (09:15)
[2018-01-23] MEDS: ZOLPIDEM TARTRATE 10 MG TABLET PO PRN (20:26)
[2018-01-24] MEDS: LORazepam 2 MG TABLET PO PRN ×2 (03:38→11:28)
[2018-01-24] MEDS ORDERED: ACETAMINOPHEN 500 MG TABLET PO ONE (03:45)
[2018-01-24] MEDS ORDERED: NICOTINE 14 MG/24 HOUR PATCH TD ONE (12:15)
[2018-01-24 20:18] LABS: GLUCOSE,POINT OF CARE 122 MG/DL (70-110)
[2018-01-24] MEDS: ZOLPIDEM TARTRATE 10 MG TABLET PO PRN (21:14)
[2018-01-24] MEDS: PALIPERIDONE 3 MG ER TABLET PO SCH (21:14)
[2018-01-24] MEDS ORDERED: PETROLATUM,WHITE 71 GM JELLY TP PRN (22:30)
[2018-01-24] MEDS ORDERED: CloNIDine HCL 0.1 MG TABLET PO PRN (22:30)
[2018-01-24] MEDS ORDERED: ONDANSETRON HCL 4 MG TABLET PO PRN (22:30)
[2018-01-24] MEDS ORDERED: LOPERAMIDE HCL 2 MG CAPSULE PO PRN (22:30)
[2018-01-24] MEDS ORDERED: ALBUTEROL SULFATE HFA 90 MCG/PUFF 8 GM INHALER IH PRN (22:30)
[2018-01-24] MEDS ORDERED: MAGNESIUM HYDROXIDE SUSPENSION 30 ML UDCUP PO PRN (22:30)
[2018-01-24] MEDS ORDERED: MAG HYDROX/AL HYDROX/SIMETH ES 30 ML SUSPENSION UDCUP PO PRN (22:30)
[2018-01-24] MEDS ORDERED: ACETAMINOPHEN 325 MG TABLET PO PRN (22:30)
[2018-01-24] MEDS ORDERED: DOCUSATE SODIUM 100 MG CAPSULE PO PRN (22:30)
[2018-01-25 06:51] LABS: BASOPHILS % (AUTO) 1.3 % (0.0-2.0); EOSINOPHILS % (AUTO) 7.8 % (1.0-6.0); HEMATOCRIT 38.6 % (41-53); HEMOGLOBIN 12.9 g/dL (13.5-17.5); LYMPHOCYTES # (AUTO) 1.9 K/uL (1.0-4.8); LYMPHOCYTES % (AUTO) 29.3 % (22.0-44.0); MEAN CORPUSCULAR HEMOGLOBIN 26.9 pg (26.0-34.0); MEAN CORPUSCULAR HGB CONC 33.5 G/dL (31.0-37.0); MEAN CORPUSCULAR VOLUME 80 fL (80-100); MONOCYTES # (AUTO) 0.9 K/uL (0.1-1.0); MONOCYTES % (AUTO) 13.1 % (2.0-9.0); NEUTROPHILS # (AUTO) 3.2 K/uL (1.8-7.7); NEUTROPHILS % (AUTO) 48.5 % (40.0-70.0); PLATELET COUNT (AUTO) 206 K/uL (150-450); RED BLOOD CELL COUNT(AUTO) 4.81 MIL/uL (4.50-5.90); RED CELL DISTRIBUTION WIDTH 16.7 % (11.5-14.5)
[2018-01-25] MEDS: MetFORMIN HCL 500 MG TABLET PO SCH ×2 (06:52→16:27)
[2018-01-25 07:04] LABS: HEMOGLOBIN A1C 5.9 % (4.5-6.2)
[2018-01-25 07:32] LABS: ALANINE AMINOTRANSFERASE 24 U/L (12-78); ALBUMIN 3.3 g/dL (3.4-5.0); ALKALINE PHOSPHATASE 39 U/L (46-116); ANION GAP 5 mmol/L (8-16); ASPARTATE AMINOTRANSFERASE 19 U/L (15-37); BILIRUBIN,TOTAL 0.4 mg/dL (0.1-1.0); CALCIUM, TOTAL 9.4 mg/dL (8.8-10.5); CARBON DIOXIDE 33 mmol/L (22-29); CHLORIDE 100 mmol/L (98-107); CHOL/HDL RATIO 3.1 (4.2-7.3); CHOLESTEROL 131 mg/dL (131-200); CREATININE 0.94 mg/dL (0.60-1.30); GLOMERULAR FILTR. RATE CALC > 60 mL/min (>60); GLUCOSE,RANDOM 97 mg/dL (70-110); HDL CHOLESTEROL 42 mg/dL (40-60); LDL CHOL (CALC.) 75 mg/dL (0-130); POTASSIUM 3.5 mmol/L (3.5-5.1); SODIUM SERUM 138 mmol/L (136-145); THYROID STIMULATING HORMONE 2.32 uIU/mL (0.36-3.74); TOTAL PROTEIN, SERUM 6.7 g/dL (6.4-8.2); TRIGLYCERIDES 69 mg/dL (15-150); UREA NITROGEN, BLOOD 14 mg/dL (7-18)
[2018-01-25 08:05] VITALS: BP 130/80
[2018-01-25] MEDS: METOLAZONE 5 MG TABLET PO SCH (08:09)
[2018-01-25] MEDS: BUDESONIDE 180 MCG/INH INHALER [120] IH SCH ×2 (08:09→16:29)
[2018-01-25] MEDS: ASPIRIN 81 MG CHEWABLE TABLET PO SCH (08:09)
[2018-01-25] MEDS: NICOTINE 14 MG/24 HOUR PATCH TD SCH (08:09)
[2018-01-25] MEDS: CHOLECALCIFEROL (VIT D3) 1,000 UNITS TABLET PO SCH (08:09)
[2018-01-25] MEDS: LamoTRIgine 100 MG TABLET PO SCH (08:09)
[2018-01-25] MEDS: CARVEDILOL 12.5 MG TABLET PO SCH ×2 (08:09→16:27)
[2018-01-25] MEDS: OMEPRAZOLE 20 MG CAPSULE PO SCH (08:09)
[2018-01-25] MEDS: LOSARTAN POTASSIUM 50 MG TABLET PO SCH (08:09)
[2018-01-25] MEDS: TiZANidine HCL 4 MG TABLET PO SCH ×2 (08:10→16:27)
[2018-01-25] MEDS: FUROSEMIDE 80 MG TABLET PO SCH ×2 (08:10→16:27)
[2018-01-25] MEDS: IBUPROFEN 400 MG TABLET PO PRN (08:10)
[2018-01-25 09:39] VITALS: BP 130/80
[2018-01-25] MEDS: LORazepam 2 MG TABLET PO PRN ×2 (10:06→16:28)
[2018-01-25] MEDS: PALIPERIDONE 3 MG ER TABLET PO SCH (20:07)
[2018-01-25] MEDS: ZOLPIDEM TARTRATE 10 MG TABLET PO PRN (20:07)
[2018-01-26] MEDS ORDERED: PNEUMOCOCCAL VACCINE POLYVALENT 0.5 ML VIAL [PPSV23] IM ONE (03:00)
[2018-01-26 04:27] VITALS: BP 137/78
[2018-01-26] MEDS: MetFORMIN HCL 500 MG TABLET PO SCH ×2 (07:03→16:33)
[2018-01-26] MEDS: BUDESONIDE 180 MCG/INH INHALER [120] IH SCH ×2 (08:22→16:31)
[2018-01-26] MEDS: NICOTINE 14 MG/24 HOUR PATCH TD SCH (08:23)
[2018-01-26] MEDS: CARVEDILOL 12.5 MG TABLET PO SCH ×2 (08:23→16:32)
[2018-01-26] MEDS: LamoTRIgine 100 MG TABLET PO SCH (08:23)
[2018-01-26] MEDS: LOSARTAN POTASSIUM 50 MG TABLET PO SCH (08:23)
[2018-01-26] MEDS: TiZANidine HCL 4 MG TABLET PO SCH ×2 (08:24→16:34)
[2018-01-26] MEDS: OMEPRAZOLE 20 MG CAPSULE PO SCH (08:24)
[2018-01-26] MEDS: FUROSEMIDE 80 MG TABLET PO SCH ×2 (08:24→16:34)
[2018-01-26] MEDS: ASPIRIN 81 MG CHEWABLE TABLET PO SCH (08:25)
[2018-01-26] MEDS: METOLAZONE 5 MG TABLET PO SCH (08:25)
[2018-01-26] MEDS: CHOLECALCIFEROL (VIT D3) 1,000 UNITS TABLET PO SCH (08:25)
[2018-01-26 09:52] VITALS: BP 125/76
[2018-01-26 16:00] VITALS: BP 141/93
[2018-01-26] MEDS: PALIPERIDONE 3 MG ER TABLET PO SCH (20:12)
[2018-01-27 00:06] VITALS: BP 106/77
[2018-01-27] MEDS: LORazepam 2 MG TABLET PO PRN ×3 (00:09→23:43)
[2018-01-27] MEDS: ZOLPIDEM TARTRATE 10 MG TABLET PO PRN ×2 (00:09→23:43)
[2018-01-27] MEDS: MetFORMIN HCL 500 MG TABLET PO SCH ×2 (07:10→16:17)
[2018-01-27] MEDS: CARVEDILOL 12.5 MG TABLET PO SCH ×2 (08:07→16:17)
[2018-01-27] MEDS: ASPIRIN 81 MG CHEWABLE TABLET PO SCH (08:07)
[2018-01-27] MEDS: LamoTRIgine 100 MG TABLET PO SCH (08:07)
[2018-01-27] MEDS: BUDESONIDE 180 MCG/INH INHALER [120] IH SCH ×2 (08:07→16:17)
[2018-01-27] MEDS: LOSARTAN POTASSIUM 50 MG TABLET PO SCH (08:07)
[2018-01-27] MEDS: FUROSEMIDE 80 MG TABLET PO SCH ×2 (08:08→16:17)
[2018-01-27] MEDS: CHOLECALCIFEROL (VIT D3) 1,000 UNITS TABLET PO SCH (08:08)
[2018-01-27] MEDS: TiZANidine HCL 4 MG TABLET PO SCH ×2 (08:08→16:17)
[2018-01-27] MEDS: OMEPRAZOLE 20 MG CAPSULE PO SCH (08:08)
[2018-01-27] MEDS: METOLAZONE 5 MG TABLET PO SCH (08:09)
[2018-01-27] MEDS: NICOTINE 14 MG/24 HOUR PATCH TD SCH (08:09)
[2018-01-27] MEDS: IBUPROFEN 400 MG TABLET PO PRN ×2 (08:16→17:51)
[2018-01-27 08:30] VITALS: BP 124/82
[2018-01-27 17:17] VITALS: BP 134/91
[2018-01-27 17:49] VITALS: BP 132/84
[2018-01-27] MEDS: PALIPERIDONE 3 MG ER TABLET PO SCH (21:33)
[2018-01-28 04:30] VITALS: BP 124/71
[2018-01-28] MEDS: IBUPROFEN 400 MG TABLET PO PRN (04:30)
[2018-01-28] MEDS: MetFORMIN HCL 500 MG TABLET PO SCH ×2 (07:18→18:00)
[2018-01-28] MEDS: BUDESONIDE 180 MCG/INH INHALER [120] IH SCH ×2 (08:22→18:00)
[2018-01-28] MEDS: FUROSEMIDE 80 MG TABLET PO SCH ×2 (08:23→18:00)
[2018-01-28] MEDS: ASPIRIN 81 MG CHEWABLE TABLET PO SCH (08:23)
[2018-01-28] MEDS: CARVEDILOL 12.5 MG TABLET PO SCH ×2 (08:23→18:00)
[2018-01-28] MEDS: OMEPRAZOLE 20 MG CAPSULE PO SCH (08:23)
[2018-01-28] MEDS: LamoTRIgine 100 MG TABLET PO SCH (08:23)
[2018-01-28] MEDS: LOSARTAN POTASSIUM 50 MG TABLET PO SCH (08:23)
[2018-01-28] MEDS: CHOLECALCIFEROL (VIT D3) 1,000 UNITS TABLET PO SCH (08:23)
[2018-01-28] MEDS: TiZANidine HCL 4 MG TABLET PO SCH ×2 (08:24→18:00)
[2018-01-28] MEDS: METOLAZONE 5 MG TABLET PO SCH (08:24)
[2018-01-28] MEDS: LORazepam 2 MG TABLET PO PRN ×2 (08:26→20:00)
[2018-01-28] MEDS: NICOTINE 14 MG/24 HOUR PATCH TD SCH (08:27)
[2018-01-28 08:33] VITALS: BP 130/88
[2018-01-28 19:18] VITALS: BP 120/60
[2018-01-28] MEDS: PALIPERIDONE 3 MG ER TABLET PO SCH (21:02)
[2018-01-29] MEDS: LORazepam 2 MG TABLET PO PRN ×2 (02:13→08:15)
[2018-01-29] MEDS: ZOLPIDEM TARTRATE 10 MG TABLET PO PRN (02:14)
[2018-01-29 02:30] VITALS: BP 122/69
[2018-01-29] MEDS: IBUPROFEN 400 MG TABLET PO PRN (02:30)
[2018-01-29] MEDS: MetFORMIN HCL 500 MG TABLET PO SCH ×2 (07:11→16:22)
[2018-01-29] MEDS: TiZANidine HCL 4 MG TABLET PO SCH ×2 (08:06→16:22)
[2018-01-29] MEDS: FUROSEMIDE 80 MG TABLET PO SCH ×2 (08:06→16:22)
[2018-01-29] MEDS: BUDESONIDE 180 MCG/INH INHALER [120] IH SCH ×2 (08:06→16:22)
[2018-01-29] MEDS: CARVEDILOL 12.5 MG TABLET PO SCH ×2 (08:06→16:22)
[2018-01-29] MEDS: ASPIRIN 81 MG CHEWABLE TABLET PO SCH (08:07)
[2018-01-29] MEDS: CHOLECALCIFEROL (VIT D3) 1,000 UNITS TABLET PO SCH (08:07)
[2018-01-29] MEDS: METOLAZONE 5 MG TABLET PO SCH (08:07)
[2018-01-29] MEDS: LOSARTAN POTASSIUM 50 MG TABLET PO SCH (08:07)
[2018-01-29] MEDS: LamoTRIgine 100 MG TABLET PO SCH (08:07)
[2018-01-29] MEDS: OMEPRAZOLE 20 MG CAPSULE PO SCH (08:07)
[2018-01-29] MEDS: NICOTINE 14 MG/24 HOUR PATCH TD SCH (08:15)
[2018-01-29 09:01] VITALS: BP 135/84
[2018-01-29] MEDS ORDERED: PALI3 PO (15:24)
[2018-01-29 16:29] VITALS: BP 120/68
== END 2018-01-29 18:00 | disposition home or self-care (01) | DRG 750 ==
LOC: EMS 12:03 → 3EC 01-24 19:35
PROVIDERS: ADMIT Psychiatry & Neurology Psychiatry; ATTEND Psychiatry & Neurology Psychiatry
DX: F25.0 Schizoaffective disorder, bipolar type (principal); I11.0 Hypertensive heart disease with heart failure; E11.40 Type 2 diabetes mellitus with diabetic neuropathy, unspecified; I50.9 Heart failure, unspecified; R45.851 Suicidal ideations; E55.9 Vitamin D deficiency, unspecified; F15.10 Other stimulant abuse, uncomplicated; F17.200 Nicotine dependence, unspecified, uncomplicated; F43.10 Post-traumatic stress disorder, unspecified; G47.33 Obstructive sleep apnea (adult) (pediatric); F32.9 Major depressive disorder, single episode, unspecified; J44.9 Chronic obstructive pulmonary disease, unspecified; K21.9 Gastro-esophageal reflux disease without esophagitis; Z78.1 Physical restraint status; Z81.8 Family history of other mental and behavioral disorders; Z71.6 Tobacco abuse counseling; Z79.4 Long term (current) use of insulin; Z91.14 Patient's other noncompliance with medication regimen; Z91.5 Personal history of self-harm
CPT/HCPCS: 83036; 84443; 94660; 96372; 99291; G0480; J1200; J1630; J2060; J3535

== ENCOUNTER 2018-03-18 20:53 | Emergency (ER) | payer MEDICAID, OTHER ==
[~2018-03-18] VITALS: Ht 177.8 cm; Wt 186.4 kg
[~2018-03-18 20:53] MED LIST changes: -DSS100 PO; +LOSA50TA25 PO; -LOSA50TA37 PO; +METF-960 PO; -MUPI1OIN4 NS; +PALI3 PO
[2018-03-18 21:33] LABS: GLUCOSE,POINT OF CARE 112 MG/DL (70-110)
[2018-03-18] MEDS ORDERED: METF-960 PO (21:38)
[2018-03-18] MEDS ORDERED: MULT-1239 PO (21:38)
[2018-03-18] MEDS ORDERED: BENZ1TAB10 PO (21:38)
[2018-03-18] MEDS ORDERED: LOSA25TA16 PO (21:38)
[2018-03-18] MEDS ORDERED: CARV3 PO (21:38)
[2018-03-18] MEDS ORDERED: NYST15PO3 TP (21:38)
[2018-03-18] MEDS ORDERED: BECL10.62 IH (21:38)
[2018-03-18] MEDS ORDERED: RISP2 PO (21:38)
[2018-03-18] MEDS ORDERED: GABA-531 PO (21:38)
[2018-03-18 22:39] LABS: APPEARANCE,URINE CLEAR (CLEAR); BILIRUBIN,URINE NEGATIVE (NEGATIVE); GLUCOSE, URINE (UA) NEGATIVE (NEGATIVE); KETONES,URINE NEGATIVE (NEGATIVE); LEUKOCYTE ESTERASE ,URINE NEGATIVE (NEGATIVE); NITRATE,URINE NEGATIVE (NEGATIVE); OCCULT BLOOD,URINE NEGATIVE (NEGATIVE); PROTEIN,URINE TRACE (NEGATIVE); UROBILINOGEN,URINE 0.2 mg/dL (<=1.0)
[2018-03-18 22:47] LABS: RBC,URINE 0-2 /HPF (0-2); WBC,URINE 0-2 /HPF (0-5)
[2018-03-18 22:48] LABS: BACTERIA,URINE None Seen /HPF (None Seen); SQUAMOUS EPITHELIAL CELL,UR Rare /LPF (None Seen)
[2018-03-18 23:00] LABS: EOSINOPHILS % (AUTO) 3.1 % (1.0-6.0); HEMATOCRIT 33.3 % (41-53); LYMPHOCYTES # (AUTO) 1.6 K/uL (1.0-4.8); MEAN CORPUSCULAR HEMOGLOBIN 26.8 pg (26.0-34.0); MEAN CORPUSCULAR VOLUME 81 fL (80-100); MONOCYTES # (AUTO) 0.9 K/uL (0.1-1.0); MONOCYTES % (AUTO) 8.1 % (2.0-9.0); NEUTROPHILS # (AUTO) 8.6 K/uL (1.8-7.7); NEUTROPHILS % (AUTO) 73.8 % (40.0-70.0); PLATELET COUNT (AUTO) 206 K/uL (150-450); RED BLOOD CELL COUNT(AUTO) 4.09 MIL/uL (4.50-5.90); RED CELL DISTRIBUTION WIDTH 17.6 % (11.5-14.5)
[2018-03-18 23:16] LABS: CALCIUM, TOTAL 8.7 mg/dL (8.8-10.5); CREATININE 1.44 mg/dL (0.60-1.30); POTASSIUM 4.4 mmol/L (3.5-5.1)
[2018-03-18 23:20] LABS: ALBUMIN 3.5 g/dL (3.4-5.0); BILIRUBIN,TOTAL 0.3 mg/dL (0.1-1.0); TOTAL PROTEIN, SERUM 7.3 g/dL (6.4-8.2)
[2018-03-18 23:32] VITALS: BP 124/77
[2018-03-18] MEDS ORDERED: HYDROCODONE/ACETAMINOPHEN 5-325 MG TABLET PO ONE (23:45)
== END 2018-03-18 23:55 | disposition home or self-care (01) ==
LOC: EMS 20:56
DX: L03.116 Cellulitis of left lower limb (principal); I11.0 Hypertensive heart disease with heart failure; I50.9 Heart failure, unspecified; J44.9 Chronic obstructive pulmonary disease, unspecified; F31.9 Bipolar disorder, unspecified; F20.9 Schizophrenia, unspecified; F15.90 Other stimulant use, unspecified, uncomplicated; F17.210 Nicotine dependence, cigarettes, uncomplicated; Z79.82 Long term (current) use of aspirin; Z79.84 Long term (current) use of oral hypoglycemic drugs
CPT/HCPCS: 99284

== ENCOUNTER 2018-03-21 21:48 | Emergency (ER) | payer OTHER ==
[~2018-03-21] VITALS: Ht 177.8 cm; Wt 186.4 kg
[~2018-03-21 21:48] MED LIST changes: +BECL10.62 IH; +BENZ1TAB10 PO; -CARV12 PO; +CARV3 PO; +GABA-531 PO; -LAMO100 PO; +LOSA25TA16 PO; -LOSA50TA25 PO; +MULT-1239 PO; +NYST15PO3 TP; -OMEP20 PO; -PALI3 PO; +RISP2 PO; -TIZA4TAB4 PO; -ZARO5 PO
[2018-03-21 22:04] LABS: GLUCOSE,POINT OF CARE 98 MG/DL (70-110)
[2018-03-22] MEDS ORDERED: FUROSEMIDE 20 MG TABLET PO ONE (01:15)
[2018-03-22 01:52] VITALS: BP 107/54
== END 2018-03-22 02:10 | disposition home or self-care (01) ==
LOC: EMS 21:49
DX: R60.0 Localized edema (principal); M79.89 Other specified soft tissue disorders; J45.909 Unspecified asthma, uncomplicated; J44.9 Chronic obstructive pulmonary disease, unspecified; I11.0 Hypertensive heart disease with heart failure; I50.9 Heart failure, unspecified; F31.9 Bipolar disorder, unspecified; F20.9 Schizophrenia, unspecified; F11.90 Opioid use, unspecified, uncomplicated; F19.90 Other psychoactive substance use, unspecified, uncomplicated; Z79.84 Long term (current) use of oral hypoglycemic drugs; Z79.82 Long term (current) use of aspirin; Z98.890 Other specified postprocedural states
CPT/HCPCS: 99283

== ENCOUNTER 2018-04-03 17:04 | Emergency (ER) | payer OTHER ==
[~2018-04-03] VITALS: Ht 177.8 cm; Wt 190.9 kg
[2018-04-03 17:35] LABS: GLUCOSE,POINT OF CARE 98 MG/DL (70-110)
[2018-04-03] MEDS ORDERED: LORazepam 2 MG TABLET PO ONE (20:15)
[2018-04-03 20:42] VITALS: BP 124/64
== END 2018-04-03 21:07 | disposition home or self-care (01) ==
LOC: EMS 17:06
DX: F20.9 Schizophrenia, unspecified (principal); F41.9 Anxiety disorder, unspecified; F31.9 Bipolar disorder, unspecified; I11.0 Hypertensive heart disease with heart failure; I50.9 Heart failure, unspecified; J44.9 Chronic obstructive pulmonary disease, unspecified; F11.90 Opioid use, unspecified, uncomplicated; F19.90 Other psychoactive substance use, unspecified, uncomplicated; J45.909 Unspecified asthma, uncomplicated; F17.210 Nicotine dependence, cigarettes, uncomplicated; Z79.899 Other long term (current) drug therapy; Z79.82 Long term (current) use of aspirin; Z79.84 Long term (current) use of oral hypoglycemic drugs
CPT/HCPCS: 99284; 99406

== ENCOUNTER 2018-04-18 12:26 | Emergency (ER) | payer OTHER ==
[~2018-04-18] VITALS: Ht 177.8 cm; Wt 186.4 kg
[2018-04-18 13:19] LABS: GLUCOSE,POINT OF CARE 109 MG/DL (70-110)
[2018-04-18 16:52] LABS: BASOPHILS % (AUTO) 0.8 % (0.0-2.0); EOSINOPHILS % (AUTO) 3.2 % (1.0-6.0); HEMATOCRIT 37.5 % (41-53); HEMOGLOBIN 12.6 g/dL (13.5-17.5); LYMPHOCYTES # (AUTO) 2.9 K/uL (1.0-4.8); LYMPHOCYTES % (AUTO) 28.5 % (22.0-44.0); MEAN CORPUSCULAR HEMOGLOBIN 27.1 pg (26.0-34.0); MEAN CORPUSCULAR HGB CONC 33.5 G/dL (31.0-37.0); MEAN CORPUSCULAR VOLUME 81 fL (80-100); MONOCYTES # (AUTO) 1.1 K/uL (0.1-1.0); MONOCYTES % (AUTO) 11.1 % (2.0-9.0); NEUTROPHILS # (AUTO) 5.8 K/uL (1.8-7.7); NEUTROPHILS % (AUTO) 56.4 % (40.0-70.0); PLATELET COUNT (AUTO) 233 K/uL (150-450); RED BLOOD CELL COUNT(AUTO) 4.63 MIL/uL (4.50-5.90); RED CELL DISTRIBUTION WIDTH 16.6 % (11.5-14.5)
[2018-04-18 17:07] LABS: ALANINE AMINOTRANSFERASE 29 U/L (12-78); ALBUMIN 3.8 g/dL (3.4-5.0); ALKALINE PHOSPHATASE 75 U/L (46-116); ANION GAP 6 mmol/L (8-16); ASPARTATE AMINOTRANSFERASE 22 U/L (15-37); BILIRUBIN,TOTAL 0.3 mg/dL (0.1-1.0); CALCIUM, TOTAL 9.2 mg/dL (8.8-10.5); CARBON DIOXIDE 33 mmol/L (22-29); CHLORIDE 96 mmol/L (98-107); CREATININE 1.11 mg/dL (0.60-1.30); GLOMERULAR FILTR. RATE CALC > 60 mL/min (>60); GLUCOSE,RANDOM 71 mg/dL (70-110); SODIUM SERUM 135 mmol/L (136-145); UREA NITROGEN, BLOOD 28 mg/dL (7-18)
[2018-04-18 17:18] LABS: AMPHET/METH SCREEN,URINE NEGATIVE (NEGATIVE); BARBITURATE SCREEN, URINE NEGATIVE (NEGATIVE); BENZODIAZEPINES SCREEN,URINE NEGATIVE (NEGATIVE); CANNABINOID SCREEN,URINE NEGATIVE (NEGATIVE); COCAINE SCREEN,URINE NEGATIVE (NEGATIVE); METHADONE SCREEN, URINE NEGATIVE (NEGATIVE); OPIATE SCREEN,URINE POSITIVE (NEGATIVE)
[2018-04-18 17:19] LABS: APPEARANCE,URINE CLEAR (CLEAR); BILIRUBIN,URINE NEGATIVE (NEGATIVE); GLUCOSE, URINE (UA) NEGATIVE (NEGATIVE); KETONES,URINE NEGATIVE (NEGATIVE); LEUKOCYTE ESTERASE ,URINE NEGATIVE (NEGATIVE); NITRATE,URINE NEGATIVE (NEGATIVE); OCCULT BLOOD,URINE NEGATIVE (NEGATIVE); PROTEIN,URINE NEGATIVE (NEGATIVE); UROBILINOGEN,URINE 0.2 mg/dL (<=1.0)
[2018-04-18 17:29] LABS: PHENCYCLIDINE SCREEN,URINE NEGATIVE (NEGATIVE)
[2018-04-18] MEDS ORDERED: POTASSIUM CHLORIDE 20 MEQ ER TABLET PO ONE (17:30)
[2018-04-18 17:57] VITALS: BP 156/98
== END 2018-04-18 18:28 | disposition home or self-care (01) ==
LOC: EMS 12:27
DX: L03.116 Cellulitis of left lower limb (principal); L03.115 Cellulitis of right lower limb; L84 Corns and callosities; F31.9 Bipolar disorder, unspecified; J45.909 Unspecified asthma, uncomplicated; I11.0 Hypertensive heart disease with heart failure; I50.9 Heart failure, unspecified; F20.9 Schizophrenia, unspecified; E11.9 Type 2 diabetes mellitus without complications; F17.210 Nicotine dependence, cigarettes, uncomplicated; F15.90 Other stimulant use, unspecified, uncomplicated; F11.90 Opioid use, unspecified, uncomplicated; G47.30 Sleep apnea, unspecified; Z79.84 Long term (current) use of oral hypoglycemic drugs; Z79.82 Long term (current) use of aspirin; Z91.040 Latex allergy status; Z79.899 Other long term (current) drug therapy
CPT/HCPCS: 36415; 80053; 80307; 81003; 82962; 85025; 99284; 99406; G0480

== ENCOUNTER 2019-08-18 13:46 | Inpatient (IN) | payer MEDICAID, OTHER ==
[~2019-08-18] VITALS: Ht 177.8 cm; Wt 208.3 kg
[~2019-08-18 13:46] MED LIST changes: +ASPI-728 PO; -ASPI81 PO; +CHOL100018 PO; -LOSA25TA16 PO; +LOSA25TA71 PO; -VITAD1000 PO
[2019-08-18 16:02] LABS: BASOPHILS % (AUTO) 0.7 % (0.0-2.0); HEMOGLOBIN 12.5 g/dL (13.5-17.5); LYMPHOCYTES # (AUTO) 2.6 K/uL (1.0-4.8); LYMPHOCYTES % (AUTO) 30.4 % (22.0-44.0); MEAN CORPUSCULAR HEMOGLOBIN 25.4 pg (26.0-34.0); MEAN CORPUSCULAR HGB CONC 32.1 G/dL (31.0-37.0); MEAN CORPUSCULAR VOLUME 79 fL (80-100); MONOCYTES % (AUTO) 11.3 % (2.0-9.0); NEUTROPHILS # (AUTO) 4.9 K/uL (1.8-7.7); NEUTROPHILS % (AUTO) 56.6 % (40.0-70.0); PLATELET COUNT (AUTO) 244 K/uL (150-450); RED BLOOD CELL COUNT(AUTO) 4.93 MIL/uL (4.50-5.90); RED CELL DISTRIBUTION WIDTH 17.3 % (11.5-14.5)
[2019-08-18 16:20] LABS: ALANINE AMINOTRANSFERASE 51 U/L (12-78); ALBUMIN 3.7 g/dL (3.4-5.0); ALKALINE PHOSPHATASE 46 U/L (46-116); ANION GAP 9 mmol/L (8-16); ASPARTATE AMINOTRANSFERASE 60 U/L (15-37); BILIRUBIN,TOTAL 0.6 mg/dL (0.1-1.0); CARBON DIOXIDE 32 mmol/L (22-29); CHLORIDE 96 mmol/L (98-107); CREATININE 0.93 mg/dL (0.60-1.30); GLOMERULAR FILTR. RATE CALC > 60 mL/min (>60); GLUCOSE,RANDOM 89 mg/dL (70-110); SODIUM SERUM 137 mmol/L (136-145); TOTAL PROTEIN, SERUM 7.6 g/dL (6.4-8.2); UREA NITROGEN, BLOOD 21 mg/dL (7-18)
[2019-08-18 16:22] LABS: POTASSIUM 2.7 mmol/L (3.5-5.1)
[2019-08-18] MEDS ORDERED: POTASSIUM CHLORIDE 20 MEQ ER TABLET PO ONE (16:30)
[2019-08-18] MEDS ORDERED: SULF1TAB89 PO (17:25)
[2019-08-18] MEDS ORDERED: CEPH500 PO (17:25)
[2019-08-18 17:40] LABS: AMPHET/METH SCREEN,URINE POSITIVE (NEGATIVE); BARBITURATE SCREEN, URINE NEGATIVE (NEGATIVE); BENZODIAZEPINES SCREEN,URINE NEGATIVE (NEGATIVE); CANNABINOID SCREEN,URINE NEGATIVE (NEGATIVE); COCAINE SCREEN,URINE NEGATIVE (NEGATIVE); METHADONE SCREEN, URINE NEGATIVE (NEGATIVE); OPIATE SCREEN,URINE NEGATIVE (NEGATIVE)
[2019-08-18 17:46] LABS: PHENCYCLIDINE SCREEN,URINE NEGATIVE (NEGATIVE)
[2019-08-18] MEDS ORDERED: CEPHALEXIN MONOHYDRATE 500 MG CAPSULE PO ONE (18:15)
[2019-08-18 20:04] LABS: GLUCOSE,POINT OF CARE 142 MG/DL (70-110)
[2019-08-18] MEDS ORDERED: HALOPERIDOL 5 MG TABLET PO ONE (20:15)
[2019-08-18] MEDS ORDERED: LORazepam 2 MG TABLET PO ONE (20:15)
[2019-08-18] MEDS ORDERED: LORazepam 2 MG/ML VIAL IM ONE (20:30)
[2019-08-18] MEDS ORDERED: HALOPERIDOL LACTATE 5 MG/ML VIAL IM ONE (20:30)
[2019-08-18] MEDS ORDERED: DiphenhydrAMINE HCL 50 MG/ML VIAL IM ONE (20:30)
[2019-08-18 21:00] LABS: ANION GAP 4 mmol/L (8-16); CALCIUM, TOTAL 9.7 mg/dL (8.8-10.5); CARBON DIOXIDE 34 mmol/L (22-29); CHLORIDE 96 mmol/L (98-107); CREATININE 1.17 mg/dL (0.60-1.30); GLOMERULAR FILTR. RATE CALC > 60 mL/min (>60); GLUCOSE,RANDOM 119 mg/dL (70-110); POTASSIUM 3.1 mmol/L (3.5-5.1); SODIUM SERUM 134 mmol/L (136-145); UREA NITROGEN, BLOOD 19 mg/dL (7-18)
[2019-08-18 21:06] LABS: ALANINE AMINOTRANSFERASE 59 U/L (12-78); ALKALINE PHOSPHATASE 51 U/L (46-116); ASPARTATE AMINOTRANSFERASE 67 U/L (15-37); BILIRUBIN,TOTAL 0.5 mg/dL (0.1-1.0); TOTAL PROTEIN, SERUM 8.3 g/dL (6.4-8.2)
[2019-08-18] MEDS ORDERED: HALOPERIDOL 5 MG TABLET PO PRN (23:00)
[2019-08-18] MEDS ORDERED: ZOLPIDEM TARTRATE 10 MG TABLET PO PRN (23:00)
[2019-08-19 02:58] VITALS: BP 147/93
[2019-08-19 03:13] VITALS: BP 147/92
[2019-08-19 07:42] LABS: CHOL/HDL RATIO 4.1 (4.2-7.3)
[2019-08-19] MEDS: BACITRACIN 28.4 GM OINTMENT TP SCH ×2 (09:00→19:41)
[2019-08-19] MEDS: CEPHALEXIN MONOHYDRATE 500 MG CAPSULE PO SCH ×3 (09:39→17:00)
[2019-08-19] MEDS ORDERED: LOPERAMIDE HCL 2 MG CAPSULE PO PRN (12:00)
[2019-08-19] MEDS ORDERED: ONDANSETRON HCL 4 MG TABLET PO PRN (12:00)
[2019-08-19] MEDS ORDERED: IBUPROFEN 400 MG TABLET PO PRN (12:00)
[2019-08-19] MEDS ORDERED: PETROLATUM,WHITE 28 GM JELLY TP PRN (12:00)
[2019-08-19] MEDS ORDERED: MAG HYDROX/AL HYDROX/SIMETH ES 30 ML SUSPENSION UDCUP PO PRN (12:00)
[2019-08-19] MEDS ORDERED: DOCUSATE SODIUM 100 MG CAPSULE PO PRN (12:00)
[2019-08-19] MEDS ORDERED: NICOTINE 14 MG/24 HOUR PATCH TD PRN (12:00)
[2019-08-19] MEDS ORDERED: BECLOMETHASONE DIPR HFA 80 MCG/PUFF 10.6 GM INHALER IH PRN (12:00)
[2019-08-19] MEDS ORDERED: GuaiFENesin/D-METHORPHAN [SUGAR-FREE] 200-20MG/10 ML SYRUP UDCUP PO PRN (12:00)
[2019-08-19] MEDS ORDERED: MAGNESIUM HYDROXIDE SUSPENSION 30 ML UDCUP PO PRN (12:00)
[2019-08-19] MEDS ORDERED: ALBUTEROL SULFATE HFA 90 MCG/PUFF 8 GM INHALER IH PRN (12:00)
[2019-08-19] MEDS ORDERED: CloNIDine HCL 0.1 MG TABLET PO PRN (12:00)
[2019-08-19] MEDS ORDERED: POTASSIUM CHLORIDE 20 MEQ ER TABLET PO ONE (13:30)
[2019-08-19 16:00] VITALS: BP 129/75
[2019-08-19] MEDS: LOSARTAN POTASSIUM 25 MG TABLET PO SCH (17:00)
[2019-08-19] MEDS: CARVEDILOL 3.125 MG TABLET PO SCH (17:00)
[2019-08-19] MEDS: BUDESONIDE 180 MCG/INH INHALER [120] IH SCH (17:00)
[2019-08-19] MEDS: FUROSEMIDE 80 MG TABLET PO SCH (17:00)
[2019-08-19 17:03] LABS: GLUCOMETER DEV NAME(LOC) 3E.I 2; GLUCOSE,POINT OF CARE 102 MG/DL (70-110)
[2019-08-19] MEDS: MetFORMIN HCL 500 MG TABLET PO SCH (17:30)
[2019-08-20 00:18] VITALS: BP 139/68
[2019-08-20] MEDS: ACETAMINOPHEN 325 MG TABLET PO PRN (00:19)
[2019-08-20] MEDS: LORazepam 2 MG TABLET PO PRN (03:42)
[2019-08-20] MEDS: MetFORMIN HCL 500 MG TABLET PO SCH ×2 (06:48→16:58)
[2019-08-20 07:30] LABS: ALANINE AMINOTRANSFERASE 49 U/L (12-78); ALBUMIN 3.6 g/dL (3.4-5.0); ALKALINE PHOSPHATASE 46 U/L (46-116); ANION GAP 5 mmol/L (8-16); ASPARTATE AMINOTRANSFERASE 40 U/L (15-37); BILIRUBIN,TOTAL 0.5 mg/dL (0.1-1.0); CALCIUM, TOTAL 8.8 mg/dL (8.8-10.5); CARBON DIOXIDE 38 mmol/L (22-29); CHLORIDE 96 mmol/L (98-107); CREATININE 0.85 mg/dL (0.60-1.30); GLOMERULAR FILTR. RATE CALC > 60 mL/min (>60); GLUCOSE,RANDOM 110 mg/dL (70-110); SODIUM SERUM 139 mmol/L (136-145); TOTAL PROTEIN, SERUM 7.2 g/dL (6.4-8.2); UREA NITROGEN, BLOOD 14 mg/dL (7-18)
[2019-08-20 07:33] LABS: POTASSIUM 2.8 mmol/L (3.5-5.1)
[2019-08-20] MEDS ORDERED: POTASSIUM CHLORIDE 20 MEQ ER TABLET PO ONE (07:45)
[2019-08-20] MEDS: CITALOPRAM HYDROBROMIDE 10 MG TABLET PO SCH (08:54)
[2019-08-20] MEDS: CEPHALEXIN MONOHYDRATE 500 MG CAPSULE PO SCH ×3 (08:54→16:58)
[2019-08-20] MEDS: LamoTRIgine 25 MG TABLET PO SCH (08:54)
[2019-08-20] MEDS: LOSARTAN POTASSIUM 25 MG TABLET PO SCH ×2 (08:54→16:58)
[2019-08-20] MEDS: ASPIRIN 81 MG CHEWABLE TABLET PO SCH (08:54)
[2019-08-20] MEDS: FUROSEMIDE 80 MG TABLET PO SCH ×2 (08:54→16:59)
[2019-08-20] MEDS: CHOLECALCIFEROL (VIT D3) 1,000 UNITS TABLET PO SCH (08:54)
[2019-08-20] MEDS: CARVEDILOL 3.125 MG TABLET PO SCH ×2 (08:54→16:58)
[2019-08-20] MEDS: BECLOMETHASONE DIPR HFA 80 MCG/PUFF 10.6 GM INHALER IH SCH (08:56)
[2019-08-20] MEDS: BUDESONIDE 180 MCG/INH INHALER [120] IH SCH ×2 (08:59→16:59)
[2019-08-20] MEDS: BACITRACIN 28.4 GM OINTMENT TP SCH ×2 (09:02→16:58)
[2019-08-20 12:09] VITALS: BP 142/75
[2019-08-20 16:00] VITALS: BP 107/86
[2019-08-21 03:40] VITALS: BP 11/69
[2019-08-21] MEDS: ACETAMINOPHEN 325 MG TABLET PO PRN (03:41)
[2019-08-21] MEDS: MetFORMIN HCL 500 MG TABLET PO SCH ×2 (06:42→16:21)
[2019-08-21 08:08] LABS: GLUCOMETER DEV NAME(LOC) 3E.I 2; GLUCOSE,POINT OF CARE 122 MG/DL (70-110)
[2019-08-21] MEDS: CHOLECALCIFEROL (VIT D3) 1,000 UNITS TABLET PO SCH (09:09)
[2019-08-21] MEDS: ASPIRIN 81 MG CHEWABLE TABLET PO SCH (09:09)
[2019-08-21] MEDS: LamoTRIgine 25 MG TABLET PO SCH (09:09)
[2019-08-21] MEDS: CITALOPRAM HYDROBROMIDE 10 MG TABLET PO SCH (09:10)
[2019-08-21] MEDS: LOSARTAN POTASSIUM 25 MG TABLET PO SCH ×2 (09:10→16:21)
[2019-08-21] MEDS: CEPHALEXIN MONOHYDRATE 500 MG CAPSULE PO SCH ×3 (09:10→16:21)
[2019-08-21] MEDS: FUROSEMIDE 80 MG TABLET PO SCH ×2 (09:10→16:21)
[2019-08-21] MEDS: CARVEDILOL 3.125 MG TABLET PO SCH ×2 (09:10→16:21)
[2019-08-21] MEDS: BACITRACIN 28.4 GM OINTMENT TP SCH ×2 (09:12→16:22)
[2019-08-21] MEDS: BUDESONIDE 180 MCG/INH INHALER [120] IH SCH ×2 (09:13→16:22)
[2019-08-21] MEDS: BECLOMETHASONE DIPR HFA 80 MCG/PUFF 10.6 GM INHALER IH SCH (09:13)
[2019-08-21 09:18] VITALS: BP 136/75
[2019-08-21] MEDS: LORazepam 2 MG TABLET PO PRN (10:25)
[2019-08-21] MEDS ORDERED: CHOL100018 PO (16:11)
[2019-08-21] MEDS ORDERED: POTASSIUM CHLORIDE 20 MEQ ER TABLET PO ONE (16:15)
[2019-08-21 17:49] LABS: GLUCOMETER DEV NAME(LOC) 3E.I 2; GLUCOSE,POINT OF CARE 98 MG/DL (70-110)
[2019-08-21 20:39] VITALS: BP 156/97
[2019-08-22 02:24] VITALS: BP 141/76
[2019-08-22 05:33] LABS: GLUCOMETER DEV NAME(LOC) 3E.I 2; GLUCOSE,POINT OF CARE 105 MG/DL (70-110)
[2019-08-22] MEDS: MetFORMIN HCL 500 MG TABLET PO SCH (06:53)
[2019-08-22 08:32] VITALS: BP 119/73
[2019-08-22] MEDS: CEPHALEXIN MONOHYDRATE 500 MG CAPSULE PO SCH ×2 (08:32→12:07)
[2019-08-22] MEDS: ASPIRIN 81 MG CHEWABLE TABLET PO SCH (08:32)
[2019-08-22] MEDS: CHOLECALCIFEROL (VIT D3) 1,000 UNITS TABLET PO SCH (08:32)
[2019-08-22] MEDS: CARVEDILOL 3.125 MG TABLET PO SCH (08:32)
[2019-08-22] MEDS: LamoTRIgine 25 MG TABLET PO SCH (08:32)
[2019-08-22] MEDS: FUROSEMIDE 80 MG TABLET PO SCH (08:33)
[2019-08-22] MEDS: CITALOPRAM HYDROBROMIDE 10 MG TABLET PO SCH (08:33)
[2019-08-22] MEDS: LOSARTAN POTASSIUM 25 MG TABLET PO SCH (08:33)
[2019-08-22] MEDS: BUDESONIDE 180 MCG/INH INHALER [120] IH SCH (08:34)
[2019-08-22] MEDS: BACITRACIN 28.4 GM OINTMENT TP SCH (08:34)
[2019-08-22] MEDS: BECLOMETHASONE DIPR HFA 80 MCG/PUFF 10.6 GM INHALER IH SCH (08:34)
[2019-08-22 10:06] VITALS: BP 145/109
[2019-08-22] MEDS: ACETAMINOPHEN 325 MG TABLET PO PRN (10:06)
[2019-08-22 11:06] VITALS: BP 158/99
[2019-08-22] MEDS ORDERED: LAMO25TA25 PO (11:49)
[2019-08-22] MEDS ORDERED: CITA10TA68 PO (11:49)
[2019-08-22] MEDS ORDERED: BACI500P3 TP (12:09)
== END 2019-08-22 14:08 | disposition home or self-care (01) | DRG 885 ==
LOC: EMS 13:47 → 3EI 08-19 01:00
PROVIDERS: ADMIT Psychiatry & Neurology Psychiatry; ATTEND Psychiatry & Neurology Psychiatry
DX: F25.0 Schizoaffective disorder, bipolar type (principal); I11.0 Hypertensive heart disease with heart failure; L03.116 Cellulitis of left lower limb; R45.851 Suicidal ideations; F43.10 Post-traumatic stress disorder, unspecified; G47.33 Obstructive sleep apnea (adult) (pediatric); E11.9 Type 2 diabetes mellitus without complications; E66.01 Morbid (severe) obesity due to excess calories; E78.5 Hyperlipidemia, unspecified; E87.6 Hypokalemia; F15.90 Other stimulant use, unspecified, uncomplicated; F17.200 Nicotine dependence, unspecified, uncomplicated; I50.9 Heart failure, unspecified; J44.9 Chronic obstructive pulmonary disease, unspecified; Z79.899 Other long term (current) drug therapy
CPT/HCPCS: 83036; 84132; 94660; 99291; G0480; J3535

== ENCOUNTER 2019-08-22 15:48 | Emergency (ER) | payer MEDICAID, OTHER ==
[~2019-08-22] VITALS: Ht 177.8 cm; Wt 212.3 kg
[~2019-08-22 15:48] MED LIST changes: +BACI500P3 TP; +CEPH500 PO; +CITA10TA68 PO; +LAMO25TA25 PO; +SULF1TAB89 PO
[2019-08-22 16:09] VITALS: BP 108/73
[2019-08-22] MEDS ORDERED: LIDOCAINE 2% VISCOUS 15 ML SOLUTION UDCUP PO ONE (16:45)
[2019-08-22] MEDS ORDERED: ACETAMINOPHEN 500 MG TABLET PO ONE (16:45)
== END 2019-08-22 17:20 | disposition home or self-care (01) ==
LOC: EMS 15:48
DX: F41.9 Anxiety disorder, unspecified (principal); I11.0 Hypertensive heart disease with heart failure; I50.9 Heart failure, unspecified; G47.00 Insomnia, unspecified; J44.9 Chronic obstructive pulmonary disease, unspecified; F31.9 Bipolar disorder, unspecified; F20.9 Schizophrenia, unspecified; F17.210 Nicotine dependence, cigarettes, uncomplicated; F15.90 Other stimulant use, unspecified, uncomplicated; F11.90 Opioid use, unspecified, uncomplicated; Z79.82 Long term (current) use of aspirin; Z79.899 Other long term (current) drug therapy; Z98.890 Other specified postprocedural states

== ENCOUNTER 2019-09-01 22:24 | Emergency (ER) | payer MEDICAID, OTHER ==
[~2019-09-01] VITALS: Ht 177.8 cm; Wt 218.2 kg
[~2019-09-01 22:24] MED LIST changes: -BENZ1TAB10 PO; -GABA-531 PO; -MULT-1239 PO; -NYST15PO3 TP; -RISP2 PO; -SULF1TAB89 PO
[2019-09-01 23:46] LABS: GLUCOSE,POINT OF CARE 102 MG/DL (70-110)
[2019-09-02 00:19] LABS: BASOPHILS % (AUTO) 0.7 % (0.0-2.0); EOSINOPHILS % (AUTO) 4.6 % (1.0-6.0); HEMOGLOBIN 12.1 g/dL (13.5-17.5); LYMPHOCYTES # (AUTO) 2.7 K/uL (1.0-4.8); MEAN CORPUSCULAR HEMOGLOBIN 26.4 pg (26.0-34.0); MEAN CORPUSCULAR VOLUME 82 fL (80-100); MONOCYTES # (AUTO) 0.8 K/uL (0.1-1.0); MONOCYTES % (AUTO) 11.2 % (2.0-9.0); NEUTROPHILS # (AUTO) 3.2 K/uL (1.8-7.7); NEUTROPHILS % (AUTO) 45.5 % (40.0-70.0); PLATELET COUNT (AUTO) 193 K/uL (150-450); RED CELL DISTRIBUTION WIDTH 18.8 % (11.5-14.5)
[2019-09-02 00:36] LABS: ANION GAP 5 mmol/L (8-16); CARBON DIOXIDE 33 mmol/L (22-29); CHLORIDE 102 mmol/L (98-107); CREATININE 1.32 mg/dL (0.60-1.30); GLOMERULAR FILTR. RATE CALC 58 mL/min (>60); GLUCOSE,RANDOM 107 mg/dL (70-110); POTASSIUM 3.4 mmol/L (3.5-5.1); SODIUM SERUM 140 mmol/L (136-145); UREA NITROGEN, BLOOD 28 mg/dL (7-18)
[2019-09-02 00:40] LABS: ALANINE AMINOTRANSFERASE 40 U/L (12-78); ALBUMIN 3.5 g/dL (3.4-5.0); ALKALINE PHOSPHATASE 56 U/L (46-116); ASPARTATE AMINOTRANSFERASE 25 U/L (15-37); BILIRUBIN,TOTAL 0.2 mg/dL (0.1-1.0); TOTAL PROTEIN, SERUM 6.7 g/dL (6.4-8.2)
[2019-09-02] MEDS ORDERED: POTASSIUM CHLORIDE 10% 40 MEQ/30 ML LIQUID UDCUP PO ONE (01:00)
[2019-09-02 03:39] VITALS: BP 115/77
== END 2019-09-02 03:58 | disposition home or self-care (01) ==
LOC: EMS 22:24
DX: S00.03XA Contusion of scalp, initial encounter (principal); S60.221A Contusion of right hand, initial encounter; F25.9 Schizoaffective disorder, unspecified; E87.6 Hypokalemia; F15.90 Other stimulant use, unspecified, uncomplicated; F11.90 Opioid use, unspecified, uncomplicated; F17.210 Nicotine dependence, cigarettes, uncomplicated; I11.0 Hypertensive heart disease with heart failure; I50.9 Heart failure, unspecified; X58.XXXA Exposure to other specified factors, initial encounter; Y93.89 Activity, other specified; Y92.89 Other specified places as the place of occurrence of the external cause; Y99.8 Other external cause status
CPT/HCPCS: 36415; 71045; 80053; 82962; 84484; 85025; 93005; 99285; G0480

== ENCOUNTER 2019-09-12 19:21 | Emergency (ER) | payer MEDICAID, OTHER ==
[~2019-09-12] VITALS: Ht 177.8 cm; Wt 170.4 kg
[2019-09-12 20:52] LABS: GLUCOSE,POINT OF CARE 109 MG/DL (70-110)
[2019-09-12 21:01] LABS: BASOPHILS % (AUTO) 0.8 % (0.0-2.0); EOSINOPHILS % (AUTO) 0.2 % (1.0-6.0); HEMATOCRIT 40.9 % (41-53); HEMOGLOBIN 13.2 g/dL (13.5-17.5); LYMPHOCYTES # (AUTO) 3.5 K/uL (1.0-4.8); LYMPHOCYTES % (AUTO) 26.6 % (22.0-44.0); MEAN CORPUSCULAR HEMOGLOBIN 26.5 pg (26.0-34.0); MEAN CORPUSCULAR HGB CONC 32.2 G/dL (31.0-37.0); MEAN CORPUSCULAR VOLUME 82 fL (80-100); MONOCYTES # (AUTO) 1.5 K/uL (0.1-1.0); MONOCYTES % (AUTO) 11.5 % (2.0-9.0); NEUTROPHILS # (AUTO) 8.1 K/uL (1.8-7.7); NEUTROPHILS % (AUTO) 60.9 % (40.0-70.0); PLATELET COUNT (AUTO) 229 K/uL (150-450); RED BLOOD CELL COUNT(AUTO) 4.96 MIL/uL (4.50-5.90); RED CELL DISTRIBUTION WIDTH 17.7 % (11.5-14.5)
[2019-09-12 21:18] LABS: ALANINE AMINOTRANSFERASE 38 U/L (12-78); ALKALINE PHOSPHATASE 84 U/L (46-116); ANION GAP -1 mmol/L (8-16); ASPARTATE AMINOTRANSFERASE 18 U/L (15-37); BILIRUBIN,TOTAL 0.3 mg/dL (0.1-1.0); CALCIUM, TOTAL 9.2 mg/dL (8.8-10.5); CHLORIDE 97 mmol/L (98-107); CREATININE 1.48 mg/dL (0.60-1.30); GLOMERULAR FILTR. RATE CALC 51 mL/min (>60); GLUCOSE,RANDOM 96 mg/dL (70-110); POTASSIUM 3.2 mmol/L (3.5-5.1); SODIUM SERUM 138 mmol/L (136-145); TOTAL PROTEIN, SERUM 7.7 g/dL (6.4-8.2); UREA NITROGEN, BLOOD 32 mg/dL (7-18)
[2019-09-12 21:25] LABS: CARBON DIOXIDE 42 mmol/L (22-29)
[2019-09-13 02:24] LABS: AMPHET/METH SCREEN,URINE NEGATIVE (NEGATIVE); BARBITURATE SCREEN, URINE NEGATIVE (NEGATIVE); BENZODIAZEPINES SCREEN,URINE NEGATIVE (NEGATIVE); CANNABINOID SCREEN,URINE NEGATIVE (NEGATIVE); COCAINE SCREEN,URINE NEGATIVE (NEGATIVE); METHADONE SCREEN, URINE NEGATIVE (NEGATIVE); OPIATE SCREEN,URINE NEGATIVE (NEGATIVE)
[2019-09-13 02:25] LABS: PHENCYCLIDINE SCREEN,URINE NEGATIVE (NEGATIVE)
[2019-09-13] MEDS: POTASSIUM CHL 10 MEQ/WATER 50 ML IV SCH ×2 (07:28→08:39)
[2019-09-13] MEDS ORDERED: POTASSIUM CHLORIDE 20 MEQ ER TABLET PO ONE ×2 (07:30)
[2019-09-13 10:40] VITALS: BP 15/86
== END 2019-09-13 11:30 | disposition home or self-care (01) ==
LOC: EMS 19:22
DX: F20.9 Schizophrenia, unspecified (principal); R45.851 Suicidal ideations; E87.6 Hypokalemia; I11.0 Hypertensive heart disease with heart failure; I50.9 Heart failure, unspecified; J44.9 Chronic obstructive pulmonary disease, unspecified; F31.9 Bipolar disorder, unspecified; F17.210 Nicotine dependence, cigarettes, uncomplicated; F11.90 Opioid use, unspecified, uncomplicated; F19.90 Other psychoactive substance use, unspecified, uncomplicated; Z88.8 Allergy status to other drugs, medicaments and biological substances; Z79.899 Other long term (current) drug therapy; Z79.84 Long term (current) use of oral hypoglycemic drugs; Z79.82 Long term (current) use of aspirin
CPT/HCPCS: 36415; 71046; 80053; 80307; 82962; 84132; 85025; 96365; 96366; 99285; G0480; J3480

== ENCOUNTER 2019-09-27 04:08 | Emergency (ER) | payer OTHER ==
[~2019-09-27] VITALS: Ht 177.8 cm; Wt 213.6 kg
[2019-09-27] MEDS ORDERED: SPIR25 PO (04:17)
[2019-09-27] MEDS ORDERED: LOSA-88 PO (04:17)
[2019-09-27] MEDS ORDERED: CARV25 PO (04:17)
[2019-09-27] MEDS ORDERED: FURO40 PO (04:17)
[2019-09-27] MEDS ORDERED: ESCI20TA PO (04:17)
[2019-09-27] MEDS ORDERED: ASPI-728 PO (04:17)
[2019-09-27] MEDS ORDERED: FAMO20 PO (04:17)
[2019-09-27] MEDS ORDERED: ZARO5 PO (04:17)
[2019-09-27] MEDS ORDERED: BUDE90AE IH (04:18)
[2019-09-27] MEDS ORDERED: METF-960 PO (04:18)
[2019-09-27] MEDS ORDERED: ALBU8HFA IH (04:18)
[2019-09-27] MEDS ORDERED: BECL10.62 IH (04:18)
[2019-09-27] MEDS ORDERED: POTA20LI36 PO (04:18)
[2019-09-27] MEDS ORDERED: PRED10 PO (04:18)
[2019-09-27 05:15] VITALS: BP 135/79
== END 2019-09-27 05:25 | disposition home or self-care (01) ==
LOC: EMS 04:08
DX: H60.12 Cellulitis of left external ear (principal); R59.0 Localized enlarged lymph nodes; Z79.899 Other long term (current) drug therapy; I11.0 Hypertensive heart disease with heart failure; I50.9 Heart failure, unspecified; J44.9 Chronic obstructive pulmonary disease, unspecified; F31.9 Bipolar disorder, unspecified; F20.9 Schizophrenia, unspecified; F15.90 Other stimulant use, unspecified, uncomplicated; F11.90 Opioid use, unspecified, uncomplicated; F17.210 Nicotine dependence, cigarettes, uncomplicated; Z88.5 Allergy status to narcotic agent; Z79.84 Long term (current) use of oral hypoglycemic drugs

== ENCOUNTER 2019-11-23 00:17 | Emergency (ER) | payer OTHER ==
[~2019-11-23] VITALS: Ht 177.8 cm; Wt 193.2 kg
[~2019-11-23 00:17] MED LIST changes: +ALBU8HFA IH; -BACI500P3 TP; -BUDE180H IH; +BUDE90AE IH; +CARV25 PO; -CARV3 PO; -CEPH500 PO; -CHOL100018 PO; -CITA10TA68 PO; +ESCI20TA87 PO; +FAMO20 PO; +FURO40 PO; -FURO80 PO; -LAMO25TA25 PO; -LOSA25TA71 PO; +LOSA50TA37 PO; +POTA20LI36 PO; +PRED10 PO; +SPIR25 PO; +ZARO5 PO
[2019-11-23 01:57] VITALS: BP 142/84
[2019-11-23] MEDS ORDERED: ACETAMINOPHEN 500 MG TABLET PO ONE (02:15)
== END 2019-11-23 02:58 | disposition home or self-care (01) ==
LOC: EMS 00:19
DX: M72.2 Plantar fascial fibromatosis (principal); M79.671 Pain in right foot; M79.672 Pain in left foot; J45.909 Unspecified asthma, uncomplicated; F31.9 Bipolar disorder, unspecified; I11.0 Hypertensive heart disease with heart failure; I50.9 Heart failure, unspecified; F20.9 Schizophrenia, unspecified; F17.210 Nicotine dependence, cigarettes, uncomplicated; F11.90 Opioid use, unspecified, uncomplicated; F19.90 Other psychoactive substance use, unspecified, uncomplicated; Z88.8 Allergy status to other drugs, medicaments and biological substances; Z79.82 Long term (current) use of aspirin

== ENCOUNTER 2019-12-09 15:14 | Emergency (ER) | payer OTHER ==
[~2019-12-09] VITALS: Ht 177.8 cm; Wt 190.9 kg
[2019-12-09] MEDS ORDERED: ATOR40TA28 PO (16:10)
[2019-12-09] MEDS ORDERED: ZARO5 PO (16:10)
[2019-12-09] MEDS ORDERED: POTA20TA83 PO (16:10)
[2019-12-09] MEDS ORDERED: SPIR25 PO (16:10)
[2019-12-09] MEDS ORDERED: FAMO20 PO (16:10)
[2019-12-09] MEDS ORDERED: BENZ100C68 PO (16:10)
[2019-12-09] MEDS ORDERED: ACET-66 PO (16:10)
[2019-12-09] MEDS ORDERED: LAMO100 PO (16:10)
[2019-12-09 18:31] VITALS: BP 118/80
== END 2019-12-09 18:58 | disposition home or self-care (01) ==
LOC: EMS 15:15
DX: S70.01XA Contusion of right hip, initial encounter (principal); S50.01XA Contusion of right elbow, initial encounter; F17.210 Nicotine dependence, cigarettes, uncomplicated; J45.909 Unspecified asthma, uncomplicated; F31.9 Bipolar disorder, unspecified; I11.0 Hypertensive heart disease with heart failure; I50.9 Heart failure, unspecified; F20.9 Schizophrenia, unspecified; F11.90 Opioid use, unspecified, uncomplicated; F19.90 Other psychoactive substance use, unspecified, uncomplicated; Z79.82 Long term (current) use of aspirin; Z79.84 Long term (current) use of oral hypoglycemic drugs; Z88.8 Allergy status to other drugs, medicaments and biological substances; W01.0XXA Fall on same level from slipping, tripping and stumbling without subsequent striking against object, initial encounter; Y93.89 Activity, other specified; Y92.89 Other specified places as the place of occurrence of the external cause; Y99.8 Other external cause status
CPT/HCPCS: 73502; 99406

== ENCOUNTER 2020-01-25 10:48 | Emergency (ER) | payer OTHER ==
[~2020-01-25] VITALS: Ht 177.8 cm; Wt 213.6 kg
[~2020-01-25 10:48] MED LIST changes: +ACET-66 PO; +ATOR40TA28 PO; +BENZ100C68 PO; -ESCI20TA87 PO; +LAMO100 PO; -POTA20LI36 PO; +POTA20TA83 PO; -PRED10 PO
[2020-01-25] MEDS ORDERED: ACETAMINOPHEN 500 MG TABLET PO ONE (11:45)
[2020-01-25 12:11] VITALS: BP 117/75
== END 2020-01-25 12:41 | disposition home or self-care (01) ==
LOC: EMS 10:55
DX: S39.012A Strain of muscle, fascia and tendon of lower back, initial encounter (principal); J45.909 Unspecified asthma, uncomplicated; F31.9 Bipolar disorder, unspecified; I11.0 Hypertensive heart disease with heart failure; I50.9 Heart failure, unspecified; F20.9 Schizophrenia, unspecified; F14.90 Cocaine use, unspecified, uncomplicated; F19.90 Other psychoactive substance use, unspecified, uncomplicated; F17.210 Nicotine dependence, cigarettes, uncomplicated; Z88.6 Allergy status to analgesic agent; Z79.82 Long term (current) use of aspirin; Z79.84 Long term (current) use of oral hypoglycemic drugs; Z79.899 Other long term (current) drug therapy; X58.XXXA Exposure to other specified factors, initial encounter; Y93.89 Activity, other specified; Y92.89 Other specified places as the place of occurrence of the external cause; Y99.8 Other external cause status

== ENCOUNTER 2020-01-31 12:33 | Inpatient (IN) | payer MEDICAID, OTHER ==
[~2020-01-31] VITALS: Ht 177.8 cm; Wt 201.6 kg
[2020-01-31 13:03] LABS: APPEARANCE,URINE CLEAR (CLEAR); BILIRUBIN,URINE NEGATIVE (NEGATIVE); GLUCOSE, URINE (UA) NEGATIVE (NEGATIVE); KETONES,URINE NEGATIVE (NEGATIVE); LEUKOCYTE ESTERASE ,URINE NEGATIVE (NEGATIVE); NITRATE,URINE NEGATIVE (NEGATIVE); OCCULT BLOOD,URINE NEGATIVE (NEGATIVE); PROTEIN,URINE NEGATIVE (NEGATIVE); UROBILINOGEN,URINE 0.2 mg/dL (<=1.0)
[2020-01-31 13:07] LABS: AMPHET/METH SCREEN,URINE POSITIVE (NEGATIVE); BARBITURATE SCREEN, URINE NEGATIVE (NEGATIVE); BENZODIAZEPINES SCREEN,URINE NEGATIVE (NEGATIVE); CANNABINOID SCREEN,URINE NEGATIVE (NEGATIVE); COCAINE SCREEN,URINE NEGATIVE (NEGATIVE); METHADONE SCREEN, URINE NEGATIVE (NEGATIVE); OPIATE SCREEN,URINE POSITIVE (NEGATIVE); PHENCYCLIDINE SCREEN,URINE NEGATIVE (NEGATIVE)
[2020-01-31 13:09] LABS: BASOPHILS % (AUTO) 1.4 % (0.0-2.0); EOSINOPHILS % (AUTO) 2.4 % (1.0-6.0); HEMATOCRIT 40.8 % (41-53); HEMOGLOBIN 13.7 g/dL (13.5-17.5); LYMPHOCYTES # (AUTO) 2.8 K/uL (1.0-4.8); LYMPHOCYTES % (AUTO) 25.7 % (22.0-44.0); MEAN CORPUSCULAR HEMOGLOBIN 27.5 pg (26.0-34.0); MEAN CORPUSCULAR HGB CONC 33.6 G/dL (31.0-37.0); MEAN CORPUSCULAR VOLUME 82 fL (80-100); MONOCYTES # (AUTO) 1.3 K/uL (0.1-1.0); NEUTROPHILS # (AUTO) 6.3 K/uL (1.8-7.7); NEUTROPHILS % (AUTO) 58.5 % (40.0-70.0); PLATELET COUNT (AUTO) 224 K/uL (150-450); RED CELL DISTRIBUTION WIDTH 16.6 % (11.5-14.5)
[2020-01-31 13:20] LABS: ANION GAP 6 mmol/L (8-16); CARBON DIOXIDE 33 mmol/L (22-29); CHLORIDE 97 mmol/L (98-107); GLOMERULAR FILTR. RATE CALC 40 mL/min (>60); GLUCOSE,RANDOM 95 mg/dL (70-110); POTASSIUM 3.3 mmol/L (3.5-5.1); SODIUM SERUM 136 mmol/L (136-145); UREA NITROGEN, BLOOD 39 mg/dL (7-18)
[2020-01-31 13:21] LABS: CALCIUM, TOTAL 9.5 mg/dL (8.8-10.5)
[2020-01-31 13:26] LABS: ALANINE AMINOTRANSFERASE 31 U/L (12-78); ALBUMIN 4.3 g/dL (3.4-5.0); ALKALINE PHOSPHATASE 63 U/L (46-116); ASPARTATE AMINOTRANSFERASE 29 U/L (15-37); BILIRUBIN,TOTAL 0.4 mg/dL (0.1-1.0); TOTAL PROTEIN, SERUM 8.9 g/dL (6.4-8.2)
[2020-01-31] MEDS ORDERED: LORazepam 2 MG TABLET PO ONE (14:15)
[2020-01-31] MEDS: HALOPERIDOL 5 MG TABLET PO ONE ×2 (14:15→14:21)
[2020-01-31] MEDS ORDERED: DiphenhydrAMINE HCL 50 MG CAPSULE PO ONE (14:15)
[2020-01-31 19:15] VITALS: BP 118/84
[2020-01-31] MEDS ORDERED: ALBUTEROL SULFATE HFA 90 MCG/PUFF 8 GM INHALER IH PRN (19:45)
[2020-01-31] MEDS ORDERED: ONDANSETRON HCL 4 MG TABLET PO PRN (20:45)
[2020-01-31] MEDS ORDERED: CloNIDine HCL 0.1 MG TABLET PO PRN (20:45)
[2020-01-31] MEDS ORDERED: DOCUSATE SODIUM 100 MG CAPSULE PO PRN (20:45)
[2020-02-01 02:17] VITALS: BP 125/83
[2020-02-01 05:42] LABS: GLUCOMETER DEV NAME(LOC) 3E.I 2; GLUCOSE,POINT OF CARE 107 MG/DL (70-110)
[2020-02-01] MEDS ORDERED: DEXTROSE 50%-WATER 25 GM/50 ML SYRINGE IVP PRN (06:30)
[2020-02-01] MEDS ORDERED: MetFORMIN HCL 500 MG TABLET PO SCH (07:30)
[2020-02-01 08:00] VITALS: BP 128/78
[2020-02-01] MEDS: ATORVASTATIN CALCIUM 40 MG TABLET PO SCH (08:39)
[2020-02-01] MEDS: POTASSIUM CHLORIDE 20 MEQ ER TABLET PO SCH (08:39)
[2020-02-01] MEDS: CARVEDILOL 25 MG TABLET PO SCH ×2 (08:39→16:58)
[2020-02-01] MEDS: INSULIN LISPRO 100 UNITS/ML SQ PRN (12:46)
[2020-02-01 12:57] LABS: GLUCOMETER DEV NAME(LOC) 3E.I 2; GLUCOSE,POINT OF CARE 133 MG/DL (70-110)
[2020-02-01] MEDS: FUROSEMIDE 40 MG TABLET PO SCH (16:58)
[2020-02-01] MEDS: LamoTRIgine 25 MG TABLET PO SCH (16:58)
[2020-02-01 17:16] LABS: GLUCOMETER DEV NAME(LOC) 3E.I 2; GLUCOSE,POINT OF CARE 116 MG/DL (70-110)
[2020-02-01] MEDS: LORazepam 2 MG TABLET PO PRN (18:22)
[2020-02-01 19:11] VITALS: BP 157/86
[2020-02-01 20:17] LABS: GLUCOMETER DEV NAME(LOC) 3E.I 2; GLUCOSE,POINT OF CARE 104 MG/DL (70-110)
[2020-02-01] MEDS: ACETAMINOPHEN 325 MG TABLET PO PRN (22:59)
[2020-02-01 23:00] VITALS: BP 130/89
[2020-02-02 00:08] VITALS: BP 131/74
[2020-02-02] MEDS: ZOLPIDEM TARTRATE 10 MG TABLET PO PRN ×2 (00:11→20:24)
[2020-02-02] MEDS: LORazepam 2 MG TABLET PO PRN ×2 (04:06→09:54)
[2020-02-02 05:24] LABS: GLUCOMETER DEV NAME(LOC) 3E.I 2; GLUCOSE,POINT OF CARE 108 MG/DL (70-110)
[2020-02-02 07:03] LABS: ANION GAP 5 mmol/L (8-16); CALCIUM, TOTAL 8.8 mg/dL (8.8-10.5); CARBON DIOXIDE 37 mmol/L (22-29); CHLORIDE 95 mmol/L (98-107); CHOL/HDL RATIO 2.5 (4.2-7.3); CHOLESTEROL 103 mg/dL (131-200); CREATININE 1.03 mg/dL (0.60-1.30); GLOMERULAR FILTR. RATE CALC > 60 mL/min (>60); GLUCOSE,RANDOM 111 mg/dL (70-110); HDL CHOLESTEROL 41 mg/dL (40-60); LDL CHOL (CALC.) 45 mg/dL (0-130); SODIUM SERUM 137 mmol/L (136-145); THYROID STIMULATING HORMONE 0.88 uIU/mL (0.36-3.74); TRIGLYCERIDES 85 mg/dL (15-150); UREA NITROGEN, BLOOD 21 mg/dL (7-18)
[2020-02-02] MEDS: INSULIN LISPRO 100 UNITS/ML SQ PRN ×2 (07:03→11:42)
[2020-02-02 07:10] LABS: HEMOGLOBIN A1C 6.1 % (3.8-5.6)
[2020-02-02 08:00] VITALS: BP 143/73
[2020-02-02] MEDS: POTASSIUM CHLORIDE 20 MEQ ER TABLET PO SCH (09:00)
[2020-02-02] MEDS: SPIRONOLACTONE 25 MG TABLET PO SCH (09:11)
[2020-02-02] MEDS: CARVEDILOL 25 MG TABLET PO SCH ×2 (09:12→17:01)
[2020-02-02] MEDS: POTASSIUM CHLORIDE 10 MEQ ER TABLET PO SCH (09:13)
[2020-02-02] MEDS: ATORVASTATIN CALCIUM 40 MG TABLET PO SCH (09:14)
[2020-02-02] MEDS: LamoTRIgine 25 MG TABLET PO SCH ×2 (09:14→17:01)
[2020-02-02] MEDS: FUROSEMIDE 40 MG TABLET PO SCH ×2 (09:14→17:01)
[2020-02-02] MEDS: METOLAZONE 5 MG TABLET PO SCH (09:15)
[2020-02-02] MEDS: NICOTINE 14 MG/24 HOUR PATCH TD PRN (09:52)
[2020-02-02] MEDS ORDERED: HALOPERIDOL LACTATE 5 MG/ML VIAL IM ONE (10:15)
[2020-02-02] MEDS ORDERED: DiphenhydrAMINE HCL 50 MG/ML VIAL IM ONE (10:15)
[2020-02-02] MEDS ORDERED: LORazepam 2 MG/ML VIAL IM ONE (10:15)
[2020-02-02 11:56] LABS: GLUCOMETER DEV NAME(LOC) 3E.I 2; GLUCOSE,POINT OF CARE 117 MG/DL (70-110)
[2020-02-02] MEDS: ACETAMINOPHEN 325 MG TABLET PO PRN (12:01)
[2020-02-02 17:00] VITALS: BP 127/68
[2020-02-02] MEDS ORDERED: ARIPiprazole ER SUSPENSION 400 MG PRE-FILLED DUAL CHAMBER SYRINGE IM SCH (17:00)
[2020-02-02 17:16] LABS: GLUCOMETER DEV NAME(LOC) 3E.I 2; GLUCOSE,POINT OF CARE 92 MG/DL (70-110)
[2020-02-02 20:34] LABS: GLUCOMETER DEV NAME(LOC) 3E.I 2; GLUCOSE,POINT OF CARE 114 MG/DL (70-110)
[2020-02-03 04:08] VITALS: BP 141/91
[2020-02-03] MEDS: ACETAMINOPHEN 325 MG TABLET PO PRN (04:09)
[2020-02-03] MEDS: LORazepam 2 MG TABLET PO PRN ×3 (04:09→17:07)
[2020-02-03 05:48] LABS: GLUCOMETER DEV NAME(LOC) 3E.I 2; GLUCOSE,POINT OF CARE 105 MG/DL (70-110)
[2020-02-03 08:22] VITALS: BP 146/76
[2020-02-03] MEDS: HALOPERIDOL 5 MG TABLET PO PRN (09:52)
[2020-02-03] MEDS: FUROSEMIDE 40 MG TABLET PO SCH ×2 (09:53→17:07)
[2020-02-03] MEDS: SPIRONOLACTONE 25 MG TABLET PO SCH (09:53)
[2020-02-03] MEDS: CARVEDILOL 25 MG TABLET PO SCH ×2 (09:53→17:07)
[2020-02-03] MEDS: POTASSIUM CHLORIDE 10 MEQ ER TABLET PO SCH (09:53)
[2020-02-03] MEDS: LamoTRIgine 25 MG TABLET PO SCH ×2 (09:53→17:07)
[2020-02-03] MEDS: METOLAZONE 5 MG TABLET PO SCH (09:54)
[2020-02-03] MEDS: ATORVASTATIN CALCIUM 40 MG TABLET PO SCH (09:54)
[2020-02-03] MEDS: NICOTINE 14 MG/24 HOUR PATCH TD PRN (09:56)
[2020-02-03 12:15] LABS: GLUCOMETER DEV NAME(LOC) 3E.I 2; GLUCOSE,POINT OF CARE 105 MG/DL (70-110)
[2020-02-03 17:00] VITALS: BP 114/67
[2020-02-03 17:24] LABS: GLUCOMETER DEV NAME(LOC) 3E.I 2; GLUCOSE,POINT OF CARE 110 MG/DL (70-110)
[2020-02-03 20:27] LABS: GLUCOMETER DEV NAME(LOC) 3E.I 2; GLUCOSE,POINT OF CARE 128 MG/DL (70-110)
[2020-02-04 00:15] VITALS: BP 138/81
[2020-02-04] MEDS: ACETAMINOPHEN 325 MG TABLET PO PRN ×2 (00:17→20:50)
[2020-02-04] MEDS: ZOLPIDEM TARTRATE 10 MG TABLET PO PRN ×2 (00:18→20:49)
[2020-02-04] MEDS: LORazepam 2 MG TABLET PO PRN ×2 (00:18→09:44)
[2020-02-04 06:34] LABS: GLUCOMETER DEV NAME(LOC) 3E.I 2; GLUCOSE,POINT OF CARE 109 MG/DL (70-110)
[2020-02-04 09:39] VITALS: BP 141/82
[2020-02-04] MEDS: HALOPERIDOL 5 MG TABLET PO PRN (09:44)
[2020-02-04] MEDS: ATORVASTATIN CALCIUM 40 MG TABLET PO SCH (09:44)
[2020-02-04] MEDS: LamoTRIgine 25 MG TABLET PO SCH ×2 (09:44→16:43)
[2020-02-04] MEDS: POTASSIUM CHLORIDE 10 MEQ ER TABLET PO SCH (09:45)
[2020-02-04] MEDS: FUROSEMIDE 40 MG TABLET PO SCH ×2 (09:45→16:43)
[2020-02-04] MEDS: SPIRONOLACTONE 25 MG TABLET PO SCH (09:45)
[2020-02-04] MEDS: METOLAZONE 5 MG TABLET PO SCH (09:45)
[2020-02-04] MEDS: CARVEDILOL 25 MG TABLET PO SCH ×2 (09:45→16:43)
[2020-02-04 16:31] VITALS: BP 120/76
[2020-02-04 17:03] LABS: GLUCOMETER DEV NAME(LOC) 3E.I 2; GLUCOSE,POINT OF CARE 107 MG/DL (70-110)
[2020-02-04 20:50] VITALS: BP 130/80
[2020-02-04 20:57] LABS: GLUCOMETER DEV NAME(LOC) 3E.I 2; GLUCOSE,POINT OF CARE 123 MG/DL (70-110)
[2020-02-05 01:20] VITALS: BP 134/76
[2020-02-05 03:52] VITALS: BP 142/90
[2020-02-05] MEDS: ACETAMINOPHEN 325 MG TABLET PO PRN ×2 (03:54→20:32)
[2020-02-05] MEDS: LORazepam 2 MG TABLET PO PRN ×3 (03:59→20:31)
[2020-02-05 05:32] LABS: GLUCOMETER DEV NAME(LOC) 3E.I 2; GLUCOSE,POINT OF CARE 97 MG/DL (70-110)
[2020-02-05] MEDS: ATORVASTATIN CALCIUM 40 MG TABLET PO SCH (08:17)
[2020-02-05] MEDS: LamoTRIgine 25 MG TABLET PO SCH ×2 (08:18→17:23)
[2020-02-05] MEDS: SPIRONOLACTONE 25 MG TABLET PO SCH (08:18)
[2020-02-05] MEDS: POTASSIUM CHLORIDE 10 MEQ ER TABLET PO SCH (08:18)
[2020-02-05] MEDS: CARVEDILOL 25 MG TABLET PO SCH ×2 (08:18→17:23)
[2020-02-05] MEDS: FUROSEMIDE 40 MG TABLET PO SCH ×2 (08:18→17:23)
[2020-02-05] MEDS: METOLAZONE 5 MG TABLET PO SCH (08:18)
[2020-02-05 09:08] VITALS: BP 144/86
[2020-02-05] MEDS ORDERED: BECLOMETHASONE DIPR HFA 80 MCG/PUFF 10.6 GM INHALER IH PRN (11:15)
[2020-02-05] MEDS ORDERED: BUDESONIDE 180 MCG/INH INHALER [120] IH PRN (11:15)
[2020-02-05 11:39] LABS: GLUCOMETER DEV NAME(LOC) 3E.I 2; GLUCOSE,POINT OF CARE 111 MG/DL (70-110)
[2020-02-05] MEDS: FAMOTIDINE 20 MG TABLET PO SCH (12:13)
[2020-02-05 16:00] VITALS: BP 123/87
[2020-02-05 16:22] LABS: GLUCOMETER DEV NAME(LOC) 3E.I 2; GLUCOSE,POINT OF CARE 100 MG/DL (70-110)
[2020-02-05] MEDS: ZOLPIDEM TARTRATE 10 MG TABLET PO PRN (20:31)
[2020-02-05 20:32] VITALS: BP 128/84
[2020-02-05] MEDS: BUDESONIDE 180 MCG/INH INHALER [120] IH SCH (20:42)
[2020-02-05 20:59] LABS: GLUCOMETER DEV NAME(LOC) 3E.I 2; GLUCOSE,POINT OF CARE 120 MG/DL (70-110)
[2020-02-06 02:28] VITALS: BP 153/93
[2020-02-06] MEDS: LORazepam 2 MG TABLET PO PRN ×2 (02:29→09:56)
[2020-02-06 06:05] LABS: GLUCOMETER DEV NAME(LOC) 3E.I 2; GLUCOSE,POINT OF CARE 102 MG/DL (70-110)
[2020-02-06 08:42] VITALS: BP 135/67
[2020-02-06] MEDS: BECLOMETHASONE DIPR HFA 80 MCG/PUFF 10.6 GM INHALER IH SCH (09:21)
[2020-02-06] MEDS: FUROSEMIDE 40 MG TABLET PO SCH ×2 (09:21→17:26)
[2020-02-06] MEDS: CARVEDILOL 25 MG TABLET PO SCH ×2 (09:21→17:26)
[2020-02-06] MEDS: FAMOTIDINE 20 MG TABLET PO SCH (09:21)
[2020-02-06] MEDS: LamoTRIgine 25 MG TABLET PO SCH ×2 (09:21→17:26)
[2020-02-06] MEDS: POTASSIUM CHLORIDE 10 MEQ ER TABLET PO SCH (09:21)
[2020-02-06] MEDS: METOLAZONE 5 MG TABLET PO SCH (09:21)
[2020-02-06] MEDS: SPIRONOLACTONE 25 MG TABLET PO SCH (09:21)
[2020-02-06] MEDS: ATORVASTATIN CALCIUM 40 MG TABLET PO SCH (09:21)
[2020-02-06] MEDS: BUDESONIDE 180 MCG/INH INHALER [120] IH SCH ×2 (09:25→20:39)
[2020-02-06] MEDS: HALOPERIDOL 5 MG TABLET PO PRN (09:56)
[2020-02-06 12:06] LABS: GLUCOMETER DEV NAME(LOC) 3E.I 2; GLUCOSE,POINT OF CARE 98 MG/DL (70-110)
[2020-02-06 17:18] VITALS: BP 111/60
[2020-02-06 17:36] LABS: GLUCOMETER DEV NAME(LOC) 3E.I 2; GLUCOSE,POINT OF CARE 114 MG/DL (70-110)
[2020-02-06] MEDS: ZOLPIDEM TARTRATE 10 MG TABLET PO PRN (20:45)
[2020-02-06 20:55] LABS: GLUCOMETER DEV NAME(LOC) 3E.I 2; GLUCOSE,POINT OF CARE 111 MG/DL (70-110)
[2020-02-07 04:12] VITALS: BP 140/88
[2020-02-07 05:32] LABS: GLUCOMETER DEV NAME(LOC) 3E.I 2; GLUCOSE,POINT OF CARE 126 MG/DL (70-110)
[2020-02-07] MEDS: LamoTRIgine 25 MG TABLET PO SCH ×2 (08:13→16:25)
[2020-02-07] MEDS: FAMOTIDINE 20 MG TABLET PO SCH (08:13)
[2020-02-07] MEDS: ATORVASTATIN CALCIUM 40 MG TABLET PO SCH (08:13)
[2020-02-07] MEDS: CARVEDILOL 25 MG TABLET PO SCH ×2 (08:14→16:25)
[2020-02-07] MEDS: BUDESONIDE 180 MCG/INH INHALER [120] IH SCH ×2 (08:14→20:01)
[2020-02-07] MEDS: SPIRONOLACTONE 25 MG TABLET PO SCH (08:14)
[2020-02-07] MEDS: BECLOMETHASONE DIPR HFA 80 MCG/PUFF 10.6 GM INHALER IH SCH (08:14)
[2020-02-07] MEDS: METOLAZONE 5 MG TABLET PO SCH (08:15)
[2020-02-07] MEDS: LORazepam 2 MG TABLET PO PRN ×3 (08:15→20:50)
[2020-02-07] MEDS: POTASSIUM CHLORIDE 10 MEQ ER TABLET PO SCH (08:15)
[2020-02-07] MEDS: FUROSEMIDE 40 MG TABLET PO SCH ×2 (08:15→16:25)
[2020-02-07] MEDS: NICOTINE 14 MG/24 HOUR PATCH TD PRN (08:26)
[2020-02-07 09:04] VITALS: BP 148/95
[2020-02-07 12:04] LABS: GLUCOMETER DEV NAME(LOC) 3E.I 2; GLUCOSE,POINT OF CARE 113 MG/DL (70-110)
[2020-02-07] MEDS ORDERED: NITROGLYCERIN 0.4 MG SUBLINGUAL TABLET #25 SL ONE (14:00)
[2020-02-07 14:39] LABS: CALCIUM, TOTAL 9.5 mg/dL (8.8-10.5); CREATININE 1.33 mg/dL (0.60-1.30); POTASSIUM 3.2 mmol/L (3.5-5.1)
[2020-02-07] MEDS: ACETAMINOPHEN 325 MG TABLET PO PRN (16:25)
[2020-02-07 16:26] VITALS: BP 124/90
[2020-02-07 17:46] LABS: GLUCOMETER DEV NAME(LOC) 3E.I 2; GLUCOSE,POINT OF CARE 121 MG/DL (70-110)
[2020-02-07 20:31] LABS: GLUCOMETER DEV NAME(LOC) 3E.C; GLUCOSE,POINT OF CARE 128 MG/DL (70-110)
[2020-02-07] MEDS: ZOLPIDEM TARTRATE 10 MG TABLET PO PRN (22:57)
[2020-02-08 02:38] VITALS: BP 108/52
[2020-02-08 05:49] LABS: GLUCOMETER DEV NAME(LOC) 3E.I 2; GLUCOSE,POINT OF CARE 124 MG/DL (70-110)
[2020-02-08] MEDS: CARVEDILOL 25 MG TABLET PO SCH ×2 (09:01→16:11)
[2020-02-08] MEDS: BECLOMETHASONE DIPR HFA 80 MCG/PUFF 10.6 GM INHALER IH SCH (09:01)
[2020-02-08] MEDS: BUDESONIDE 180 MCG/INH INHALER [120] IH SCH ×2 (09:01→20:14)
[2020-02-08] MEDS: METOLAZONE 5 MG TABLET PO SCH (09:01)
[2020-02-08] MEDS: NICOTINE 14 MG/24 HOUR PATCH TD PRN (09:02)
[2020-02-08] MEDS: LORazepam 2 MG TABLET PO PRN ×2 (09:02→20:14)
[2020-02-08] MEDS: LamoTRIgine 25 MG TABLET PO SCH ×2 (09:02→16:11)
[2020-02-08] MEDS: SPIRONOLACTONE 25 MG TABLET PO SCH (09:02)
[2020-02-08] MEDS: POTASSIUM CHLORIDE 10 MEQ ER TABLET PO SCH (09:02)
[2020-02-08] MEDS: ATORVASTATIN CALCIUM 40 MG TABLET PO SCH (09:02)
[2020-02-08] MEDS: FAMOTIDINE 20 MG TABLET PO SCH (09:02)
[2020-02-08] MEDS: FUROSEMIDE 40 MG TABLET PO SCH ×2 (09:02→16:11)
[2020-02-08 10:58] VITALS: BP 143/88
[2020-02-08 12:01] LABS: GLUCOMETER DEV NAME(LOC) 3E.I 2; GLUCOSE,POINT OF CARE 115 MG/DL (70-110)
[2020-02-08 16:00] VITALS: BP 158/89
[2020-02-08] MEDS: ACETAMINOPHEN 325 MG TABLET PO PRN (16:13)
[2020-02-08 16:33] VITALS: BP 154/86
[2020-02-08 17:07] LABS: GLUCOMETER DEV NAME(LOC) 3E.I 2; GLUCOSE,POINT OF CARE 129 MG/DL (70-110)
[2020-02-08 20:06] VITALS: BP 121/63
[2020-02-08 20:30] LABS: GLUCOMETER DEV NAME(LOC) 3E.I 2; GLUCOSE,POINT OF CARE 135 MG/DL (70-110)
[2020-02-08] MEDS: ZOLPIDEM TARTRATE 10 MG TABLET PO PRN (20:41)
[2020-02-09 05:39] LABS: GLUCOMETER DEV NAME(LOC) 3E.I 2; GLUCOSE,POINT OF CARE 107 MG/DL (70-110)
[2020-02-09] MEDS: SPIRONOLACTONE 25 MG TABLET PO SCH (09:52)
[2020-02-09] MEDS: LamoTRIgine 25 MG TABLET PO SCH (09:52)
[2020-02-09] MEDS: ATORVASTATIN CALCIUM 40 MG TABLET PO SCH (09:52)
[2020-02-09] MEDS: FAMOTIDINE 20 MG TABLET PO SCH (09:52)
[2020-02-09] MEDS: BUDESONIDE 180 MCG/INH INHALER [120] IH SCH (09:52)
[2020-02-09] MEDS: CARVEDILOL 25 MG TABLET PO SCH (09:52)
[2020-02-09] MEDS: POTASSIUM CHLORIDE 10 MEQ ER TABLET PO SCH (09:52)
[2020-02-09] MEDS: METOLAZONE 5 MG TABLET PO SCH (09:52)
[2020-02-09] MEDS: BECLOMETHASONE DIPR HFA 80 MCG/PUFF 10.6 GM INHALER IH SCH (09:52)
[2020-02-09] MEDS: FUROSEMIDE 40 MG TABLET PO SCH (09:53)
[2020-02-09] MEDS: LORazepam 2 MG TABLET PO PRN ×2 (09:54→13:55)
[2020-02-09 10:01] VITALS: BP 149/97
[2020-02-09 13:36] LABS: GLUCOMETER DEV NAME(LOC) 3E.I 2; GLUCOSE,POINT OF CARE 144 MG/DL (70-110)
[2020-02-09] MEDS ORDERED: LAMO25TA25 PO (16:45)
[2020-02-09] MEDS ORDERED: ARIP400S3 IM (16:45)
[2020-02-09] MEDS ORDERED: ATOR40TA28 PO (17:18)
== END 2020-02-09 17:00 | disposition home or self-care (01) | DRG 885 ==
LOC: EMS 12:35 → 3EI 16:05
PROVIDERS: ADMIT Psychiatry & Neurology Psychiatry; ATTEND Psychiatry & Neurology Psychiatry
PROC: 5A09357 Assistance with Respiratory Ventilation, Less than 24 Consecutive Hours, Continuous Positive Airway Pressure (ICD-10-PCS; principal; 2020-02-03)
PROC: 5A09357 Assistance with Respiratory Ventilation, Less than 24 Consecutive Hours, Continuous Positive Airway Pressure (ICD-10-PCS; 2020-02-08)
DX: F25.0 Schizoaffective disorder, bipolar type (principal); I11.0 Hypertensive heart disease with heart failure; R45.851 Suicidal ideations; E11.9 Type 2 diabetes mellitus without complications; E78.5 Hyperlipidemia, unspecified; F43.10 Post-traumatic stress disorder, unspecified; I50.9 Heart failure, unspecified; J44.9 Chronic obstructive pulmonary disease, unspecified; G47.33 Obstructive sleep apnea (adult) (pediatric); F41.9 Anxiety disorder, unspecified; F32.9 Major depressive disorder, single episode, unspecified; F19.10 Other psychoactive substance abuse, uncomplicated; K59.00 Constipation, unspecified; E78.00 Pure hypercholesterolemia, unspecified; G40.909 Epilepsy, unspecified, not intractable, without status epilepticus; Z87.891 Personal history of nicotine dependence; Z59.0 Homelessness
CPT/HCPCS: 83036; 84443; 93005; 93306; 94660; G0480; J0401; J1200; J1630; J2060; J3535

== ENCOUNTER 2020-02-13 16:17 | Emergency (ER) | payer MEDICAID, OTHER ==
[~2020-02-13] VITALS: Ht 177.8 cm; Wt 204.6 kg
[~2020-02-13 16:17] MED LIST changes: -ACET-66 PO; -ALBU8HFA IH; +ARIP400S3 IM; -ASPI-728 PO; -BENZ100C68 PO; -LAMO100 PO; +LAMO25TA25 PO; -LOSA50TA37 PO; -METF-960 PO
[2020-02-13 17:55] LABS: EOSINOPHILS % (AUTO) 2.5 % (1.0-6.0); HEMATOCRIT 39.6 % (41-53); HEMOGLOBIN 13.2 g/dL (13.5-17.5); LYMPHOCYTES # (AUTO) 2.8 K/uL (1.0-4.8); LYMPHOCYTES % (AUTO) 26.8 % (22.0-44.0); MEAN CORPUSCULAR HEMOGLOBIN 27.2 pg (26.0-34.0); MEAN CORPUSCULAR HGB CONC 33.3 G/dL (31.0-37.0); MEAN CORPUSCULAR VOLUME 82 fL (80-100); MONOCYTES # (AUTO) 0.9 K/uL (0.1-1.0); MONOCYTES % (AUTO) 8.6 % (2.0-9.0); NEUTROPHILS # (AUTO) 6.3 K/uL (1.8-7.7); NEUTROPHILS % (AUTO) 61.1 % (40.0-70.0); PLATELET COUNT (AUTO) 263 K/uL (150-450); RED BLOOD CELL COUNT(AUTO) 4.83 MIL/uL (4.50-5.90); RED CELL DISTRIBUTION WIDTH 15.6 % (11.5-14.5)
[2020-02-13 18:06] LABS: ANION GAP 8 mmol/L (8-16); CALCIUM, TOTAL 9.4 mg/dL (8.8-10.5); CARBON DIOXIDE 33 mmol/L (22-29); CHLORIDE 95 mmol/L (98-107); CREATININE 1.68 mg/dL (0.60-1.30); GLOMERULAR FILTR. RATE CALC 44 mL/min (>60); GLUCOSE,RANDOM 103 mg/dL (70-110); POTASSIUM 3.2 mmol/L (3.5-5.1); SODIUM SERUM 136 mmol/L (136-145); UREA NITROGEN, BLOOD 26 mg/dL (7-18)
[2020-02-13 18:11] LABS: ALANINE AMINOTRANSFERASE 28 U/L (12-78); ALBUMIN 3.9 g/dL (3.4-5.0); ALKALINE PHOSPHATASE 70 U/L (46-116); ASPARTATE AMINOTRANSFERASE 22 U/L (15-37); BILIRUBIN,TOTAL 0.3 mg/dL (0.1-1.0); TOTAL PROTEIN, SERUM 7.7 g/dL (6.4-8.2)
[2020-02-13 18:37] LABS: AMPHET/METH SCREEN,URINE NEGATIVE (NEGATIVE); BARBITURATE SCREEN, URINE NEGATIVE (NEGATIVE); BENZODIAZEPINES SCREEN,URINE NEGATIVE (NEGATIVE); CANNABINOID SCREEN,URINE NEGATIVE (NEGATIVE); COCAINE SCREEN,URINE NEGATIVE (NEGATIVE); METHADONE SCREEN, URINE NEGATIVE (NEGATIVE); OPIATE SCREEN,URINE POSITIVE (NEGATIVE)
[2020-02-13 18:39] LABS: PHENCYCLIDINE SCREEN,URINE NEGATIVE (NEGATIVE)
[2020-02-13 18:58] LABS: GLUCOSE,POINT OF CARE 121 MG/DL (70-110)
[2020-02-13] MEDS ORDERED: POTASSIUM CHLORIDE 10% 40 MEQ/30 ML LIQUID UDCUP PO ONE (20:30)
[2020-02-13] MEDS ORDERED: ACETAMINOPHEN 500 MG TABLET PO ONE (20:30)
[2020-02-13 20:35] VITALS: BP 112/80
[2020-02-13] MEDS ORDERED: POTA-92 PO (20:35)
== END 2020-02-13 21:00 | disposition home or self-care (01) ==
LOC: EMS 16:18
DX: F25.9 Schizoaffective disorder, unspecified (principal); N18.9 Chronic kidney disease, unspecified; E11.22 Type 2 diabetes mellitus with diabetic chronic kidney disease; F15.90 Other stimulant use, unspecified, uncomplicated; F11.90 Opioid use, unspecified, uncomplicated
CPT/HCPCS: 36415; 80053; 80307; 82962; 85025; 99284; G0480

== ENCOUNTER 2020-02-15 18:20 | Emergency (ER) | payer OTHER ==
[~2020-02-15] VITALS: Ht 177.8 cm; Wt 206.8 kg
[~2020-02-15 18:20] MED LIST changes: +POTA-92 PO; -POTA20TA83 PO
[2020-02-15] MEDS ORDERED: ASPI-728 PO (18:46)
[2020-02-15] MEDS ORDERED: LOSA50TA37 PO (18:46)
[2020-02-15 19:30] LABS: BASOPHILS % (AUTO) 2.1 % (0.0-2.0); EOSINOPHILS % (AUTO) 3.3 % (1.0-6.0); HEMATOCRIT 37.5 % (41-53); HEMOGLOBIN 11.9 g/dL (13.5-17.5); LYMPHOCYTES # (AUTO) 2.8 K/uL (1.0-4.8); LYMPHOCYTES % (AUTO) 26.2 % (22.0-44.0); MEAN CORPUSCULAR HEMOGLOBIN 25.9 pg (26.0-34.0); MEAN CORPUSCULAR HGB CONC 31.7 G/dL (31.0-37.0); MEAN CORPUSCULAR VOLUME 82 fL (80-100); MONOCYTES # (AUTO) 1.1 K/uL (0.1-1.0); MONOCYTES % (AUTO) 10.2 % (2.0-9.0); NEUTROPHILS # (AUTO) 6.2 K/uL (1.8-7.7); NEUTROPHILS % (AUTO) 58.2 % (40.0-70.0); PLATELET COUNT (AUTO) 240 K/uL (150-450); RED BLOOD CELL COUNT(AUTO) 4.58 MIL/uL (4.50-5.90); RED CELL DISTRIBUTION WIDTH 16.2 % (11.5-14.5)
[2020-02-15 19:53] LABS: ANION GAP 9 mmol/L (8-16); CALCIUM, TOTAL 9.4 mg/dL (8.8-10.5); CARBON DIOXIDE 29 mmol/L (22-29); CHLORIDE 97 mmol/L (98-107); CREATININE 2.06 mg/dL (0.60-1.30); GLOMERULAR FILTR. RATE CALC 34 mL/min (>60); GLUCOSE,RANDOM 119 mg/dL (70-110); POTASSIUM 3.6 mmol/L (3.5-5.1); SODIUM SERUM 135 mmol/L (136-145); UREA NITROGEN, BLOOD 34 mg/dL (7-18)
[2020-02-15 19:59] LABS: ALANINE AMINOTRANSFERASE 23 U/L (12-78); ALBUMIN 3.5 g/dL (3.4-5.0); ALKALINE PHOSPHATASE 60 U/L (46-116); ASPARTATE AMINOTRANSFERASE 20 U/L (15-37); BILIRUBIN,TOTAL 0.2 mg/dL (0.1-1.0)
[2020-02-15 21:45] VITALS: BP 111/71
== END 2020-02-15 22:23 | disposition home or self-care (01) ==
LOC: EMS 18:20
DX: F25.9 Schizoaffective disorder, unspecified (principal); F31.9 Bipolar disorder, unspecified; F17.210 Nicotine dependence, cigarettes, uncomplicated; J45.909 Unspecified asthma, uncomplicated; I11.0 Hypertensive heart disease with heart failure; I50.9 Heart failure, unspecified; G89.29 Other chronic pain; F11.90 Opioid use, unspecified, uncomplicated; F19.90 Other psychoactive substance use, unspecified, uncomplicated; Z79.899 Other long term (current) drug therapy; Z79.82 Long term (current) use of aspirin; Z88.8 Allergy status to other drugs, medicaments and biological substances
CPT/HCPCS: 36415; 80053; 82962; 85025; 99284; 99406; G0480

== ENCOUNTER 2020-02-18 20:15 | Emergency (ER) | payer OTHER ==
[~2020-02-18] VITALS: Ht 177.8 cm; Wt 204.6 kg
[~2020-02-18 20:15] MED LIST changes: +ASPI-728 PO; +LOSA50TA37 PO
[2020-02-18] MEDS ORDERED: SPIR25 PO (20:32)
[2020-02-18] MEDS ORDERED: KCL10IV PO (20:32)
[2020-02-18] MEDS ORDERED: LAMO100 PO (20:32)
[2020-02-18] MEDS ORDERED: KETOROLAC TROMETHAMINE 30 MG/ML VIAL IM ONE (22:45)
[2020-02-18] MEDS ORDERED: ACETAMINOPHEN 500 MG TABLET PO ONE (22:45)
[2020-02-18] MEDS ORDERED: LIDOCAINE 5% TRANSDERMAL PATCH TD ONE (22:45)
[2020-02-18 23:50] VITALS: BP 113/63
== END 2020-02-18 23:47 | disposition home or self-care (01) ==
LOC: EMS 20:15
DX: M25.512 Pain in left shoulder (principal); F31.9 Bipolar disorder, unspecified; I11.0 Hypertensive heart disease with heart failure; I50.9 Heart failure, unspecified; J44.9 Chronic obstructive pulmonary disease, unspecified; F20.9 Schizophrenia, unspecified; G89.29 Other chronic pain; F17.210 Nicotine dependence, cigarettes, uncomplicated; F11.90 Opioid use, unspecified, uncomplicated; F19.90 Other psychoactive substance use, unspecified, uncomplicated; Z79.899 Other long term (current) drug therapy; Z79.82 Long term (current) use of aspirin; Z88.6 Allergy status to analgesic agent; Z88.5 Allergy status to narcotic agent; Z88.8 Allergy status to other drugs, medicaments and biological substances
CPT/HCPCS: 96372; 99283; J1885

== ENCOUNTER 2020-02-23 01:30 | Emergency (ER) | payer OTHER ==
[~2020-02-23] VITALS: Ht 177.8 cm; Wt 204.6 kg
[~2020-02-23 01:30] MED LIST changes: +KCL10IV PO; +LAMO100 PO; -LAMO25TA25 PO; -POTA-92 PO
[2020-02-23 01:32] VITALS: BP 102/64
== END 2020-02-23 04:36 | disposition left against medical advice (07) ==
LOC: EMS 01:31
DX: M25.512 Pain in left shoulder (principal); Z53.21 Procedure and treatment not carried out due to patient leaving prior to being seen by health care provider

== ENCOUNTER 2020-02-24 08:33 | Emergency (ER) | payer OTHER ==
[~2020-02-24] VITALS: Ht 177.8 cm; Wt 136.4 kg
[2020-02-24 10:28] VITALS: BP 115/70
== END 2020-02-24 10:29 | disposition home or self-care (01) ==
LOC: EMS 08:34
DX: K60.2 Anal fissure, unspecified (principal); F31.9 Bipolar disorder, unspecified; I11.0 Hypertensive heart disease with heart failure; I50.9 Heart failure, unspecified; E11.9 Type 2 diabetes mellitus without complications; F20.9 Schizophrenia, unspecified; F17.210 Nicotine dependence, cigarettes, uncomplicated; F11.90 Opioid use, unspecified, uncomplicated; F19.90 Other psychoactive substance use, unspecified, uncomplicated; Z88.6 Allergy status to analgesic agent; Z88.5 Allergy status to narcotic agent; Z88.8 Allergy status to other drugs, medicaments and biological substances; Z79.82 Long term (current) use of aspirin; Z79.899 Other long term (current) drug therapy
CPT/HCPCS: Z7502

== ENCOUNTER 2020-03-04 23:46 | Emergency (ER) | payer OTHER ==
[~2020-03-04] VITALS: Ht 177.8 cm; Wt 207.0 kg
[2020-03-05 00:16] VITALS: BP 109/79
[2020-03-05] MEDS ORDERED: NAPROXEN 250 MG TABLET PO ONE (00:30)
[2020-03-05 00:51] LABS: GLUCOSE,POINT OF CARE 108 MG/DL (70-110)
== END 2020-03-05 00:56 | disposition home or self-care (01) ==
LOC: EMS 23:46
DX: M72.2 Plantar fascial fibromatosis (principal); F41.9 Anxiety disorder, unspecified; I11.0 Hypertensive heart disease with heart failure; I50.9 Heart failure, unspecified; E11.9 Type 2 diabetes mellitus without complications; F31.9 Bipolar disorder, unspecified; J44.9 Chronic obstructive pulmonary disease, unspecified; F20.9 Schizophrenia, unspecified; F15.90 Other stimulant use, unspecified, uncomplicated; F11.90 Opioid use, unspecified, uncomplicated; F17.210 Nicotine dependence, cigarettes, uncomplicated; Z88.8 Allergy status to other drugs, medicaments and biological substances; Z79.82 Long term (current) use of aspirin; Z79.899 Other long term (current) drug therapy

== ENCOUNTER 2020-03-17 02:54 | Emergency (ER) | payer OTHER ==
[~2020-03-17] VITALS: Ht 177.8 cm; Wt 215.0 kg
[2020-03-17] MEDS ORDERED: LORazepam 1 MG TABLET PO ONE (03:45)
[2020-03-17 04:08] VITALS: BP 108/60
[2020-03-18] MEDS ORDERED: POTA20TA83 PO (18:26)
== END 2020-03-17 04:25 | disposition home or self-care (01) ==
LOC: EMS 02:55
DX: F41.9 Anxiety disorder, unspecified (principal); F31.9 Bipolar disorder, unspecified; I11.0 Hypertensive heart disease with heart failure; I50.9 Heart failure, unspecified; F20.9 Schizophrenia, unspecified; E11.9 Type 2 diabetes mellitus without complications; G89.29 Other chronic pain; J45.909 Unspecified asthma, uncomplicated; F17.210 Nicotine dependence, cigarettes, uncomplicated; F11.90 Opioid use, unspecified, uncomplicated; F19.90 Other psychoactive substance use, unspecified, uncomplicated; Z79.899 Other long term (current) drug therapy; Z88.6 Allergy status to analgesic agent; Z88.5 Allergy status to narcotic agent; Z88.8 Allergy status to other drugs, medicaments and biological substances; Z79.82 Long term (current) use of aspirin
CPT/HCPCS: 93005; Z7502; Z7610

== ENCOUNTER 2020-03-18 07:14 | Emergency (ER) | payer OTHER ==
[~2020-03-18] VITALS: Ht 170.2 cm; Wt 172.7 kg
[2020-03-18 08:06] VITALS: BP 127/64
[2020-03-18] MEDS ORDERED: POTA20TA83 PO (18:26)
== END 2020-03-18 08:26 | disposition home or self-care (01) ==
LOC: EMS 07:22
DX: F41.9 Anxiety disorder, unspecified (principal); J45.909 Unspecified asthma, uncomplicated; F31.9 Bipolar disorder, unspecified; I11.0 Hypertensive heart disease with heart failure; I50.9 Heart failure, unspecified; F17.210 Nicotine dependence, cigarettes, uncomplicated; F11.90 Opioid use, unspecified, uncomplicated; F19.90 Other psychoactive substance use, unspecified, uncomplicated; F20.9 Schizophrenia, unspecified; G89.29 Other chronic pain; Z79.82 Long term (current) use of aspirin; Z79.899 Other long term (current) drug therapy; Z88.5 Allergy status to narcotic agent; Z88.6 Allergy status to analgesic agent; Z88.8 Allergy status to other drugs, medicaments and biological substances
CPT/HCPCS: 99283; Z7502

== ENCOUNTER 2020-03-18 16:30 | Emergency (ER) | payer OTHER ==
[~2020-03-18] VITALS: Ht 172.7 cm; Wt 202.3 kg
[2020-03-18 16:57] VITALS: BP 127/64
[2020-03-18] MEDS ORDERED: POTA20TA83 PO (18:26)
[2020-03-18] MEDS ORDERED: HydrOXYzine HCL 25 MG TABLET PO ONE (18:30)
== END 2020-03-18 19:17 | disposition home or self-care (01) ==
LOC: EMS 16:32
DX: F41.9 Anxiety disorder, unspecified (principal); F25.9 Schizoaffective disorder, unspecified; F31.9 Bipolar disorder, unspecified; F17.210 Nicotine dependence, cigarettes, uncomplicated; J45.909 Unspecified asthma, uncomplicated; I11.0 Hypertensive heart disease with heart failure; I50.9 Heart failure, unspecified; F19.90 Other psychoactive substance use, unspecified, uncomplicated; F11.90 Opioid use, unspecified, uncomplicated; Z88.5 Allergy status to narcotic agent; Z88.8 Allergy status to other drugs, medicaments and biological substances; Z79.899 Other long term (current) drug therapy; Z79.82 Long term (current) use of aspirin
CPT/HCPCS: 99406

== ENCOUNTER 2020-03-24 23:53 | Emergency (ER) | payer OTHER ==
[~2020-03-24] VITALS: Ht 177.8 cm; Wt 213.2 kg
[~2020-03-24 23:53] MED LIST changes: -KCL10IV PO; +POTA20TA83 PO
[2020-03-25 00:32] LABS: GLUCOSE,POINT OF CARE 110 MG/DL (70-110)
[2020-03-25 00:36] LABS: BASOPHILS % (AUTO) 1.2 % (0.0-2.0); EOSINOPHILS % (AUTO) 3.7 % (1.0-6.0); HEMATOCRIT 40.6 % (41-53); HEMOGLOBIN 13.5 g/dL (13.5-17.5); LYMPHOCYTES # (AUTO) 2.7 K/uL (1.0-4.8); LYMPHOCYTES % (AUTO) 29.9 % (22.0-44.0); MEAN CORPUSCULAR HEMOGLOBIN 27.7 pg (26.0-34.0); MEAN CORPUSCULAR HGB CONC 33.3 G/dL (31.0-37.0); MEAN CORPUSCULAR VOLUME 83 fL (80-100); MONOCYTES # (AUTO) 0.7 K/uL (0.1-1.0); MONOCYTES % (AUTO) 8.2 % (2.0-9.0); NEUTROPHILS # (AUTO) 5.1 K/uL (1.8-7.7); PLATELET COUNT (AUTO) 212 K/uL (150-450); RED BLOOD CELL COUNT(AUTO) 4.88 MIL/uL (4.50-5.90); RED CELL DISTRIBUTION WIDTH 16.9 % (11.5-14.5)
[2020-03-25 00:38] LABS: ANION GAP 1 mmol/L (8-16); CALCIUM, TOTAL 9.6 mg/dL (8.8-10.5); CARBON DIOXIDE 37 mmol/L (22-29); CHLORIDE 101 mmol/L (98-107); CREATININE 1.22 mg/dL (0.60-1.30); GLOMERULAR FILTR. RATE CALC > 60 mL/min (>60); GLUCOSE,RANDOM 120 mg/dL (70-110); SODIUM SERUM 139 mmol/L (136-145); UREA NITROGEN, BLOOD 21 mg/dL (7-18)
[2020-03-25 00:43] LABS: ALANINE AMINOTRANSFERASE 32 U/L (12-78); ALBUMIN 3.7 g/dL (3.4-5.0); ALKALINE PHOSPHATASE 66 U/L (46-116); ASPARTATE AMINOTRANSFERASE 23 U/L (15-37); BILIRUBIN,TOTAL 0.2 mg/dL (0.1-1.0); TOTAL PROTEIN, SERUM 6.9 g/dL (6.4-8.2)
[2020-03-25 01:11] VITALS: BP 127/85
== END 2020-03-25 01:36 | disposition home or self-care (01) ==
LOC: EMS 23:53
DX: K62.5 Hemorrhage of anus and rectum (principal); F32.9 Major depressive disorder, single episode, unspecified; I11.0 Hypertensive heart disease with heart failure; I50.9 Heart failure, unspecified

== ENCOUNTER 2020-03-30 15:00 | Emergency (ER) | payer OTHER ==
[~2020-03-30] VITALS: Ht 177.8 cm; Wt 213.2 kg
[2020-03-30 18:23] VITALS: BP 134/95
[2020-03-30] MEDS ORDERED: TRAZ-257 PO (18:30)
== END 2020-03-30 19:13 | disposition home or self-care (01) ==
LOC: EMS 15:01
DX: F32.9 Major depressive disorder, single episode, unspecified (principal); I11.0 Hypertensive heart disease with heart failure; I50.9 Heart failure, unspecified; F20.9 Schizophrenia, unspecified; F17.210 Nicotine dependence, cigarettes, uncomplicated; F15.90 Other stimulant use, unspecified, uncomplicated; F11.90 Opioid use, unspecified, uncomplicated

== ENCOUNTER 2020-04-08 01:14 | Emergency (ER) | payer OTHER ==
[~2020-04-08] VITALS: Ht 177.8 cm; Wt 213.2 kg
[~2020-04-08 01:14] MED LIST changes: +TRAZ-257 PO
[2020-04-08 02:37] VITALS: BP 119/69
== END 2020-04-08 02:40 | disposition home or self-care (01) ==
LOC: EMS 01:14
DX: G89.29 Other chronic pain (principal); H57.10 Ocular pain, unspecified eye; M54.9 Dorsalgia, unspecified; J45.909 Unspecified asthma, uncomplicated; F31.9 Bipolar disorder, unspecified; I11.0 Hypertensive heart disease with heart failure; I50.9 Heart failure, unspecified; E11.9 Type 2 diabetes mellitus without complications; F20.9 Schizophrenia, unspecified; F17.210 Nicotine dependence, cigarettes, uncomplicated; F14.90 Cocaine use, unspecified, uncomplicated; Z76.0 Encounter for issue of repeat prescription; Z88.8 Allergy status to other drugs, medicaments and biological substances; Z88.5 Allergy status to narcotic agent; Z79.899 Other long term (current) drug therapy; Z79.82 Long term (current) use of aspirin
CPT/HCPCS: 99283; Z7502

== ENCOUNTER 2020-04-10 19:30 | Emergency (ER) | payer OTHER ==
[~2020-04-10] VITALS: Ht 177.8 cm; Wt 213.2 kg
[2020-04-10] MEDS ORDERED: ACETAMINOPHEN 500 MG TABLET PO ONE (21:30)
[2020-04-10 21:41] LABS: GLUCOSE,POINT OF CARE 114 MG/DL (70-110)
[2020-04-10 23:15] VITALS: BP 106/56
== END 2020-04-10 23:50 | disposition home or self-care (01) ==
LOC: EMS 19:30
DX: F20.9 Schizophrenia, unspecified (principal); J45.909 Unspecified asthma, uncomplicated; F31.9 Bipolar disorder, unspecified; I11.0 Hypertensive heart disease with heart failure; I50.9 Heart failure, unspecified; E11.9 Type 2 diabetes mellitus without complications; F17.210 Nicotine dependence, cigarettes, uncomplicated; F19.90 Other psychoactive substance use, unspecified, uncomplicated; F14.90 Cocaine use, unspecified, uncomplicated; Z79.899 Other long term (current) drug therapy; Z79.82 Long term (current) use of aspirin; Z88.5 Allergy status to narcotic agent; Z88.8 Allergy status to other drugs, medicaments and biological substances

== ENCOUNTER 2020-05-09 14:45 | Emergency (ER) | payer OTHER ==
[~2020-05-09] VITALS: Ht 170.2 cm; Wt 181.8 kg
[2020-05-09] MEDS ORDERED: GABA-1216 PO (14:57)
[2020-05-09] MEDS ORDERED: TOPI100T37 PO (14:57)
[2020-05-09] MEDS ORDERED: HydrOXYzine HCL 50 MG TABLET PO ONE (16:15)
[2020-05-09 17:37] VITALS: BP 123/61
== END 2020-05-09 18:03 | disposition home or self-care (01) ==
LOC: EMS 14:45
DX: F41.9 Anxiety disorder, unspecified (principal); F25.9 Schizoaffective disorder, unspecified; F31.9 Bipolar disorder, unspecified; F17.210 Nicotine dependence, cigarettes, uncomplicated; J45.909 Unspecified asthma, uncomplicated; I11.0 Hypertensive heart disease with heart failure; I50.9 Heart failure, unspecified; E11.9 Type 2 diabetes mellitus without complications; F11.90 Opioid use, unspecified, uncomplicated; F19.90 Other psychoactive substance use, unspecified, uncomplicated; G89.29 Other chronic pain; Z88.5 Allergy status to narcotic agent; Z88.8 Allergy status to other drugs, medicaments and biological substances; Z79.899 Other long term (current) drug therapy; Z79.82 Long term (current) use of aspirin
CPT/HCPCS: 99406

== ENCOUNTER 2022-03-28 20:21 | Emergency (ER) | payer OTHER ==
[~2022-03-28] VITALS: Ht 177.8 cm; Wt 230.9 kg
[~2022-03-28 20:21] MED LIST changes: +ASPI-1450 PO; -ASPI-728 PO; +GABA-1216 PO; +LOSA-382 PO; -LOSA50TA37 PO; +POTA-206 PO; -POTA20TA83 PO; +SPIR-37 PO; -SPIR25 PO; +TOPI100T37 PO
[2022-03-28 21:45] LABS: BASOPHILS % (AUTO) 0.6 % (0.0-2.0); EOSINOPHILS % (AUTO) 0 % (1.0-6.0); LYMPHOCYTES # (AUTO) 0.8 K/uL (1.0-4.8); LYMPHOCYTES % (AUTO) 8.9 % (22.0-44.0); MEAN CORPUSCULAR HEMOGLOBIN 25.6 pg (26.0-34.0); MEAN CORPUSCULAR HGB CONC 31.8 G/dL (31.0-37.0); MEAN CORPUSCULAR VOLUME 81 fL (80-100); MONOCYTES # (AUTO) 0.3 K/uL (0.1-1.0); MONOCYTES % (AUTO) 3.2 % (2.0-9.0); NEUTROPHILS # (AUTO) 7.4 K/uL (1.8-7.7); PLATELET COUNT (AUTO) 186 K/uL (150-450); RED BLOOD CELL COUNT(AUTO) 5.08 MIL/uL (4.50-5.90); RED CELL DISTRIBUTION WIDTH 17.3 % (11.5-14.5)
[2022-03-28 21:46] LABS: NEUTROPHILS % (AUTO) 87.3 % (40.0-70.0)
[2022-03-28 21:54] LABS: ANION GAP 2 mmol/L (8-16); CALCIUM, TOTAL 9.3 mg/dL (8.8-10.5); CARBON DIOXIDE 37 mmol/L (22-29); CHLORIDE 95 mmol/L (98-107); CREATININE 1.22 mg/dL (0.60-1.30); GLUCOSE,RANDOM 141 mg/dL (70-110); POTASSIUM 3.4 mmol/L (3.5-5.1); SODIUM SERUM 134 mmol/L (136-145); UREA NITROGEN, BLOOD 39 mg/dL (7-18)
[2022-03-28 21:55] LABS: GLOMERULAR FILTR. RATE CALC > 60 mL/min (>60)
[2022-03-28 21:59] LABS: ALANINE AMINOTRANSFERASE 43 U/L (12-78); ALBUMIN 3.5 g/dL (3.4-5.0); ALKALINE PHOSPHATASE 73 U/L (46-116); ASPARTATE AMINOTRANSFERASE 20 U/L (15-37); BILIRUBIN,TOTAL 0.3 mg/dL (0.1-1.0); LIPASE 86 U/L (73-393); TOTAL PROTEIN, SERUM 6.9 g/dL (6.4-8.2)
[2022-03-28] MEDS: DICLOFENAC SODIUM 1% 100 GM GEL [4GM] TP ONE (22:02)
[2022-03-28 22:04] VITALS: BP 141/72
== END 2022-03-29 00:53 | disposition home or self-care (01) ==
LOC: EMS 20:23
DX: F25.9 Schizoaffective disorder, unspecified (principal); M25.562 Pain in left knee; G89.29 Other chronic pain; I11.0 Hypertensive heart disease with heart failure; I50.9 Heart failure, unspecified; J44.9 Chronic obstructive pulmonary disease, unspecified; J45.909 Unspecified asthma, uncomplicated; F31.9 Bipolar disorder, unspecified; E11.9 Type 2 diabetes mellitus without complications; G47.30 Sleep apnea, unspecified; F17.210 Nicotine dependence, cigarettes, uncomplicated; F15.90 Other stimulant use, unspecified, uncomplicated; F11.90 Opioid use, unspecified, uncomplicated; F41.0 Panic disorder [episodic paroxysmal anxiety]; G47.00 Insomnia, unspecified; Z87.09 Personal history of other diseases of the respiratory system; Z87.19 Personal history of other diseases of the digestive system; Z87.448 Personal history of other diseases of urinary system; Z86.59 Personal history of other mental and behavioral disorders; Z87.39 Personal history of other diseases of the musculoskeletal system and connective tissue; Z98.890 Other specified postprocedural states; Z88.8 Allergy status to other drugs, medicaments and biological substances
CPT/HCPCS: 80053; 83690; 84484; 85025; 93005; 99284

== ENCOUNTER 2022-04-16 22:10 | Emergency (ER) | payer OTHER ==
[~2022-04-16] VITALS: Ht 177.8 cm; Wt 225.0 kg
[2022-04-16 22:36] VITALS: BP 152/42
[2022-04-16] MEDS ORDERED: GABA-1181 PO (22:55)
== END 2022-04-16 23:23 | disposition home or self-care (01) ==
LOC: EMS 22:12
DX: R60.0 Localized edema (principal); T42.6X5A Adverse effect of other antiepileptic and sedative-hypnotic drugs, initial encounter; J45.909 Unspecified asthma, uncomplicated; F31.9 Bipolar disorder, unspecified; J44.9 Chronic obstructive pulmonary disease, unspecified; E11.9 Type 2 diabetes mellitus without complications; I10 Essential (primary) hypertension; F20.9 Schizophrenia, unspecified; G47.30 Sleep apnea, unspecified; G89.29 Other chronic pain; F17.210 Nicotine dependence, cigarettes, uncomplicated; F15.90 Other stimulant use, unspecified, uncomplicated; F10.90 Alcohol use, unspecified, uncomplicated; F11.90 Opioid use, unspecified, uncomplicated; Z88.8 Allergy status to other drugs, medicaments and biological substances; Y92.89 Other specified places as the place of occurrence of the external cause
CPT/HCPCS: 99283; Z7502

== ENCOUNTER 2022-05-11 03:51 | Emergency (ER) | payer OTHER ==
[~2022-05-11] VITALS: Ht 177.8 cm; Wt 225.0 kg
[~2022-05-11 03:51] MED LIST changes: +GABA-1181 PO
[2022-05-11 07:04] LABS: BASOPHILS % (AUTO) 0.8 % (0.0-2.0); EOSINOPHILS % (AUTO) 2.9 % (1.0-6.0); HEMATOCRIT 39.1 % (41-53); HEMOGLOBIN 12.4 g/dL (13.5-17.5); LYMPHOCYTES # (AUTO) 2.2 K/uL (1.0-4.8); LYMPHOCYTES % (AUTO) 21.3 % (22.0-44.0); MEAN CORPUSCULAR HEMOGLOBIN 25.3 pg (26.0-34.0); MEAN CORPUSCULAR HGB CONC 31.8 G/dL (31.0-37.0); MEAN CORPUSCULAR VOLUME 80 fL (80-100); MONOCYTES # (AUTO) 0.9 K/uL (0.1-1.0); MONOCYTES % (AUTO) 9.3 % (2.0-9.0); NEUTROPHILS # (AUTO) 6.7 K/uL (1.8-7.7); NEUTROPHILS % (AUTO) 65.7 % (40.0-70.0); PLATELET COUNT (AUTO) 220 K/uL (150-450); RED BLOOD CELL COUNT(AUTO) 4.91 MIL/uL (4.50-5.90); RED CELL DISTRIBUTION WIDTH 17.5 % (11.5-14.5)
[2022-05-11 07:22] LABS: ANION GAP -2 mmol/L (8-16); CALCIUM, TOTAL 9.7 mg/dL (8.8-10.5); CARBON DIOXIDE 37 mmol/L (22-29); CHLORIDE 101 mmol/L (98-107); GLUCOSE,RANDOM 103 mg/dL (70-110); POTASSIUM 5.3 mmol/L (3.5-5.1); SODIUM SERUM 136 mmol/L (136-145); UREA NITROGEN, BLOOD 23 mg/dL (7-18)
[2022-05-11 07:24] LABS: GLOMERULAR FILTR. RATE CALC > 60 mL/min (>60)
[2022-05-11 07:27] LABS: ALANINE AMINOTRANSFERASE 37 U/L (12-78); ALBUMIN 3.5 g/dL (3.4-5.0); ALKALINE PHOSPHATASE 74 U/L (46-116); ASPARTATE AMINOTRANSFERASE 30 U/L (15-37); BILIRUBIN,TOTAL 0.4 mg/dL (0.1-1.0); TOTAL PROTEIN, SERUM 6.8 g/dL (6.4-8.2)
[2022-05-11 07:46] LABS: B-TYPE NATRIURETIC PEPTIDE 28 pg/mL (0-100)
[2022-05-11] MEDS ORDERED: FUROSEMIDE 20 MG TABLET PO ONE (09:00)
[2022-05-11] MEDS ORDERED: TRAM-559 PO (09:37)
[2022-05-11] MEDS ORDERED: AMOX1TAB16 PO (09:41)
[2022-05-11 09:55] VITALS: BP 112/70
== END 2022-05-11 09:57 | disposition home or self-care (01) ==
LOC: EMS 03:53
DX: I11.0 Hypertensive heart disease with heart failure (principal); I50.9 Heart failure, unspecified; J45.909 Unspecified asthma, uncomplicated; F31.9 Bipolar disorder, unspecified; J44.9 Chronic obstructive pulmonary disease, unspecified; E11.9 Type 2 diabetes mellitus without complications; F20.9 Schizophrenia, unspecified; G47.30 Sleep apnea, unspecified; G89.29 Other chronic pain; M54.9 Dorsalgia, unspecified; F17.210 Nicotine dependence, cigarettes, uncomplicated; F15.90 Other stimulant use, unspecified, uncomplicated; F11.90 Opioid use, unspecified, uncomplicated; Z76.0 Encounter for issue of repeat prescription
CPT/HCPCS: 71045; 80053; 82962; 83880; 84484; 85025; 93005; 99285; 36415-L1; 36415-TC

== ENCOUNTER 2022-06-15 22:16 | Emergency (ER) | payer MEDICAID, OTHER ==
[~2022-06-15] VITALS: Ht 177.8 cm; Wt 225.0 kg
[~2022-06-15 22:16] MED LIST changes: +AMOX1TAB16 PO; +TRAM-559 PO
[2022-06-15] MEDS ORDERED: DIVA-80 PO (22:47)
[2022-06-16 00:27] LABS: BASOPHILS % (AUTO) 1.2 % (0.0-2.0); EOSINOPHILS % (AUTO) 3.4 % (1.0-6.0); HEMATOCRIT 39.1 % (41-53); HEMOGLOBIN 12.4 g/dL (13.5-17.5); LYMPHOCYTES # (AUTO) 2.8 K/uL (1.0-4.8); MEAN CORPUSCULAR HEMOGLOBIN 25.1 pg (26.0-34.0); MEAN CORPUSCULAR HGB CONC 31.7 G/dL (31.0-37.0); MEAN CORPUSCULAR VOLUME 79 fL (80-100); MONOCYTES # (AUTO) 1.1 K/uL (0.1-1.0); MONOCYTES % (AUTO) 10.7 % (2.0-9.0); NEUTROPHILS % (AUTO) 57.7 % (40.0-70.0); PLATELET COUNT (AUTO) 200 K/uL (150-450); RED BLOOD CELL COUNT(AUTO) 4.94 MIL/uL (4.50-5.90); RED CELL DISTRIBUTION WIDTH 18.3 % (11.5-14.5)
[2022-06-16 00:36] LABS: CALCIUM, TOTAL 9.6 mg/dL (8.8-10.5); CREATININE 1.28 mg/dL (0.60-1.30); POTASSIUM 4.5 mmol/L (3.5-5.1)
[2022-06-16 00:51] LABS: ALBUMIN 3.9 g/dL (3.4-5.0); BILIRUBIN,TOTAL 0.5 mg/dL (0.1-1.0)
[2022-06-16] MEDS ORDERED: IPRATROPIUM BROMIDE 0.5 MG/2.5 ML NEB SOLUTION NEB ONE (01:00)
[2022-06-16] MEDS ORDERED: MethylPREDNISolone SOD SUCC 125 MG/2 ML VIAL IVP ONE (01:00)
[2022-06-16] MEDS ORDERED: ALBUTEROL SULFATE 2.5 MG/0.5 ML NEB SOLUTION NEB ONE (01:00)
[2022-06-16 01:34] LABS: COVID AG,FIA SOURCE NASOPHARYNGEAL
[2022-06-16] MEDS ORDERED: FUROSEMIDE 20 MG/2 ML VIAL IVP ONE (02:00)
[2022-06-16 02:15] LABS: INFLUENZA TYPE A NEGATIVE FOR TYPE A (NEGATIVE); INFLUENZA TYPE B NEGATIVE FOR TYPE B (NEGATIVE)
[2022-06-16] MEDS ORDERED: 0.9% SODIUM CHLORIDE 10 ML SYRINGE IVP PRN (03:00)
[2022-06-16] MEDS ORDERED: ACETAMINOPHEN 325 MG TABLET PO PRN ×2 (03:00→04:30)
[2022-06-16] MEDS ORDERED: ONDANSETRON HCL 4 MG/2 ML VIAL IVP PRN ×2 (03:00→04:30)
[2022-06-16] MEDS ORDERED: ALBUTEROL SULFATE 2.5 MG/0.5 ML NEB SOLUTION NEB PRN (04:30)
[2022-06-16] MEDS ORDERED: IPRATROPIUM BROMIDE 0.5 MG/2.5 ML NEB SOLUTION NEB PRN (04:30)
[2022-06-16 05:41] VITALS: BP 119/64
[2022-06-16] MEDS ORDERED: TraMADol HCL 50 MG TABLET PO PRN (06:45)
[2022-06-16] MEDS ORDERED: HEPARIN SODIUM,PORCINE 5,000 UNITS/ML VIAL SQ SCH (08:00)
[2022-06-16] MEDS ORDERED: ASPIRIN 81 MG CHEWABLE TABLET PO SCH (09:00)
[2022-06-16] MEDS ORDERED: CARVEDILOL 25 MG TABLET PO SCH (09:00)
[2022-06-16] MEDS ORDERED: LOSARTAN POTASSIUM 50 MG TABLET PO SCH (09:00)
[2022-06-16] MEDS ORDERED: FAMOTIDINE 20 MG TABLET PO SCH (09:00)
[2022-06-16] MEDS ORDERED: POTASSIUM CHLORIDE 20 MEQ ER TABLET PO SCH (09:00)
[2022-06-16] MEDS ORDERED: FUROSEMIDE 40 MG TABLET PO SCH (09:00)
[2022-06-16] MEDS ORDERED: GABAPENTIN 300 MG CAPSULE PO SCH (09:00)
[2022-06-16] MEDS ORDERED: SPIRONOLACTONE 25 MG TABLET PO SCH (09:00)
[2022-06-16] MEDS ORDERED: BECLOMETHASONE DIPR HFA 80 MCG/PUFF 10.6 GM INHALER IH SCH (09:00)
[2022-06-16] MEDS ORDERED: METOLAZONE 5 MG TABLET PO SCH (09:00)
[2022-06-16] MEDS ORDERED: ATORVASTATIN CALCIUM 40 MG TABLET PO SCH (09:00)
[2022-06-16] MEDS ORDERED: DIVALPROEX SODIUM 500 MG ER TABLET PO SCH (09:00)
[2022-06-16] MEDS ORDERED: ARIPiprazole ER SUSPENSION 400 MG PRE-FILLED DUAL CHAMBER SYRINGE IM SCH (09:00)
[2022-06-16] MEDS ORDERED: TOPIRAMATE 100 MG TABLET PO SCH (09:00)
[2022-06-16] MEDS ORDERED: MethylPREDNISolone SOD SUCC 40 MG/ML VIAL IVP SCH (12:15)
[2022-06-16] MEDS ORDERED: ALBUTEROL SULFATE 2.5 MG/0.5 ML NEB SOLUTION NEB SCH (14:00)
[2022-06-16] MEDS ORDERED: IPRATROPIUM BROMIDE 0.5 MG/2.5 ML NEB SOLUTION NEB SCH (14:00)
[2022-06-16] MEDS ORDERED: TraZODone HCL 100 MG TABLET PO SCH (21:00)
[2022-06-16] MEDS ORDERED: LamoTRIgine 100 MG TABLET PO SCH (21:00)
== END 2022-06-16 08:59 | disposition left against medical advice (07) ==
LOC: EMS 22:22 → AHU 06-16 02:30 → UNDOADMIN 06-16 02:30 → EMS 06-16 08:59
DX: J44.1 Chronic obstructive pulmonary disease with (acute) exacerbation (principal); J96.90 Respiratory failure, unspecified, unspecified whether with hypoxia or hypercapnia; I11.0 Hypertensive heart disease with heart failure; I50.9 Heart failure, unspecified; F31.9 Bipolar disorder, unspecified; F20.9 Schizophrenia, unspecified; F11.90 Opioid use, unspecified, uncomplicated; F15.90 Other stimulant use, unspecified, uncomplicated; Z88.8 Allergy status to other drugs, medicaments and biological substances; Z79.899 Other long term (current) drug therapy; Z20.822 Contact with and (suspected) exposure to COVID-19
CPT/HCPCS: 99291; 87426; 80053; 82550; 83880; 84484; 85025; 85379; 87804; 36415; 94060; 71045; 94660; 93005; 94640; J1940; J2930; 96374; 96375; J0401; J3535; J7613

== ENCOUNTER 2022-06-20 12:33 | Emergency (ER) | payer MEDICAID ==
[~2022-06-20] VITALS: Ht 177.8 cm; Wt 224.0 kg
[~2022-06-20 12:33] MED LIST changes: -AMOX1TAB16 PO; +DIVA-80 PO; -GABA-1216 PO
[2022-06-20] MEDS ORDERED: HYDROCORTISONE 1% 30 GM CREAM TP ONE (13:45)
[2022-06-20 14:22] VITALS: BP 125/69
== END 2022-06-20 14:24 | disposition home or self-care (01) ==
LOC: EMS 12:40
DX: T63.441A Toxic effect of venom of bees, accidental (unintentional), initial encounter (principal); J45.909 Unspecified asthma, uncomplicated; F31.9 Bipolar disorder, unspecified; E11.9 Type 2 diabetes mellitus without complications; I11.0 Hypertensive heart disease with heart failure; I50.9 Heart failure, unspecified; J44.9 Chronic obstructive pulmonary disease, unspecified; F20.9 Schizophrenia, unspecified; G89.29 Other chronic pain; M54.9 Dorsalgia, unspecified; G47.30 Sleep apnea, unspecified; F17.210 Nicotine dependence, cigarettes, uncomplicated; F15.90 Other stimulant use, unspecified, uncomplicated; F11.90 Opioid use, unspecified, uncomplicated; Z88.8 Allergy status to other drugs, medicaments and biological substances; Y92.89 Other specified places as the place of occurrence of the external cause
CPT/HCPCS: 82962; 99282

== ENCOUNTER 2022-06-29 04:20 | Emergency (ER) | payer MEDICAID ==
[~2022-06-29] VITALS: Ht 177.8 cm; Wt 225.9 kg
[2022-06-29] MEDS ORDERED: ACETAMINOPHEN 325 MG TABLET PO ONE (04:45)
[2022-06-29 04:54] LABS: BASOPHILS % (AUTO) 0.8 % (0.0-2.0); EOSINOPHILS % (AUTO) 3.5 % (1.0-6.0); HEMATOCRIT 38.7 % (41-53); LYMPHOCYTES % (AUTO) 24.9 % (22.0-44.0); MEAN CORPUSCULAR HEMOGLOBIN 24.5 pg (26.0-34.0); MEAN CORPUSCULAR HGB CONC 30.9 G/dL (31.0-37.0); MEAN CORPUSCULAR VOLUME 79 fL (80-100); MONOCYTES # (AUTO) 0.9 K/uL (0.1-1.0); MONOCYTES % (AUTO) 10.7 % (2.0-9.0); NEUTROPHILS # (AUTO) 4.8 K/uL (1.8-7.7); NEUTROPHILS % (AUTO) 60.1 % (40.0-70.0); PLATELET COUNT (AUTO) 203 K/uL (150-450); RED BLOOD CELL COUNT(AUTO) 4.89 MIL/uL (4.50-5.90); RED CELL DISTRIBUTION WIDTH 18.4 % (11.5-14.5)
[2022-06-29 04:56] LABS: COVID AG,FIA SOURCE NASOPHARYNGEAL
[2022-06-29 05:15] LABS: ANION GAP 2 mmol/L (8-16); CALCIUM, TOTAL 8.9 mg/dL (8.8-10.5); CARBON DIOXIDE 32 mmol/L (22-29); CHLORIDE 103 mmol/L (98-107); CREATININE 0.99 mg/dL (0.60-1.30); GLUCOSE,RANDOM 95 mg/dL (70-110); POTASSIUM 4.7 mmol/L (3.5-5.1); SODIUM SERUM 137 mmol/L (136-145); UREA NITROGEN, BLOOD 20 mg/dL (7-18)
[2022-06-29] MEDS ORDERED: MetFORMIN HCL 500 MG TABLET PO ONE (05:15)
[2022-06-29] MEDS ORDERED: HydrOXYzine PAMOATE 50 MG CAPSULE PO ONE (05:15)
[2022-06-29] MEDS ORDERED: CETIRIZINE HCL 10 MG TABLET PO ONE (05:15)
[2022-06-29] MEDS ORDERED: SPIRONOLACTONE 25 MG TABLET PO ONE (05:15)
[2022-06-29] MEDS ORDERED: TAMSULOSIN HCL 0.4 MG CAPSULE PO ONE (05:15)
[2022-06-29 05:17] LABS: GLOMERULAR FILTR. RATE CALC > 60 mL/min (>60)
[2022-06-29 05:21] LABS: ALANINE AMINOTRANSFERASE 26 U/L (12-78); ALBUMIN 3.6 g/dL (3.4-5.0); ALKALINE PHOSPHATASE 66 U/L (46-116); ASPARTATE AMINOTRANSFERASE 21 U/L (15-37); BILIRUBIN,TOTAL 0.3 mg/dL (0.1-1.0); TOTAL PROTEIN, SERUM 6.5 g/dL (6.4-8.2); VALPROIC ACID 25 mcg/mL (50-100)
[2022-06-29 08:34] LABS: AMPHET/METH SCREEN,URINE NEGATIVE (NEGATIVE); BARBITURATE SCREEN, URINE NEGATIVE (NEGATIVE); BENZODIAZEPINES SCREEN,URINE NEGATIVE (NEGATIVE); CANNABINOID SCREEN,URINE NEGATIVE (NEGATIVE); COCAINE SCREEN,URINE NEGATIVE (NEGATIVE); METHADONE SCREEN, URINE NEGATIVE (NEGATIVE); OPIATE SCREEN,URINE NEGATIVE (NEGATIVE); PHENCYCLIDINE SCREEN,URINE NEGATIVE (NEGATIVE)
[2022-06-29 11:10] VITALS: BP 121/69
== END 2022-06-29 12:45 | disposition home or self-care (01) ==
LOC: EMS 04:22
DX: F25.9 Schizoaffective disorder, unspecified (principal); F31.9 Bipolar disorder, unspecified; M25.562 Pain in left knee; J45.909 Unspecified asthma, uncomplicated; I11.0 Hypertensive heart disease with heart failure; I50.9 Heart failure, unspecified; J44.9 Chronic obstructive pulmonary disease, unspecified; E11.9 Type 2 diabetes mellitus without complications; N39.0 Urinary tract infection, site not specified; K92.2 Gastrointestinal hemorrhage, unspecified; G89.29 Other chronic pain; F17.210 Nicotine dependence, cigarettes, uncomplicated; F15.90 Other stimulant use, unspecified, uncomplicated; F11.90 Opioid use, unspecified, uncomplicated; Z90.89 Acquired absence of other organs; Z88.5 Allergy status to narcotic agent; Z88.8 Allergy status to other drugs, medicaments and biological substances; Z20.822 Contact with and (suspected) exposure to COVID-19
CPT/HCPCS: 99285; 87426; 80053; 80164; 82962; 85025; 36415; 80307 ×2; G0480